=== PATIENT | female | born 1985 | race American Indian/Alaskan Native ===

== ENCOUNTER 2019-01-21 11:33 | Emergency (ER) | payer OTHER, MEDICAID ==
[2019-01-21 11:43] VITALS: BP 161/99
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
== END 2019-01-21 12:36 | disposition home or self-care (01) ==
LOC: ED 11:33
DX: S39.012A Strain of muscle, fascia and tendon of lower back, initial encounter (principal); I10 Essential (primary) hypertension; V87.7XXA Person injured in collision between other specified motor vehicles (traffic), initial encounter; Y93.89 Activity, other specified; Y92.488 Other paved roadways as the place of occurrence of the external cause; Y99.8 Other external cause status
CPT/HCPCS: 99282

== ENCOUNTER 2019-04-21 03:12 | Inpatient (IN) | payer BC, MEDICAID ==
[2019-04-21] MEDS ORDERED: MAGNESIUM SULFATE 2GM/50ML 2 GM/50 ML BAG IV ONE (03:43)
[2019-04-21] MEDS ORDERED: XYLOCAINE TOPICAL 4% TP ONE (03:43)
[2019-04-21] MEDS ORDERED: BENADRYL IV ONE (03:43)
[2019-04-21] MEDS ORDERED: REGLAN IV ONE (03:43)
[2019-04-21] MEDS ORDERED: APRESOLINE IV ONE (03:43)
[2019-04-21] MEDS ORDERED: SOLU-Medrol IV ONE (03:43)
--- NOTE | 2019-04-21 03:45 | Event Note ---
Date: 04/21/19 Medical screening examination 34-year-old female, reports having had outpatient ultrasound at [facility] last week, found to be 4 weeks last week, now presenting with temporal, frontal, and occipital headache, associated neck discomfort. Also endorses binocular blurry vision. No recent trauma. Walking with a steady gait. GCS of 15. No other physical pain. Has a previous history of hypertension associated with , but has not taken labetalol for the past one or 2 years. Patient's symptoms will be treated. Screening laboratory studies have been ordered. Noncontrast CT scan of the brain ordered. Patient has provided informed consent for noncontrast CT scan of the brain. Vital Signs 04/21/19 03:16 Temperature 98.5 F Pulse Rate 88 Respiratory 18 Rate Blood Pressure 186/127 O2 Sat by Pulse 100 Oximetry
[2019-04-21 04:13] LABS: Bilirubin,Urine NEG (Negative); Blood,Urine MOD (Negative); Color,Urine Yellow (Yellow); Mucus,Urine FEW /HPF; Protein,Urine <15 mg/dL mg/dL (Negative); Urobilinogen,Urine < 2.0 mg/dL (<2.0)
[2019-04-21 04:25] LABS: Basophils # (Auto) 0.1 K/mm3 (0.0-0.1); Basophils % (Auto) 0.6 % (0.0-1.8); Eosinophils # (Auto) 0.1 K/mm3 (0.0-0.4); Hematocrit 36.5 % (30.3-42.9); Hemoglobin 12.5 gm/dl (10.1-14.3); Lymphocytes # (Auto) 2.5 K/mm3 (1.2-5.4); Mean Corpuscular HGB Conc 34 % (30-34); Mean Corpuscular Volume 87 fl (79-97); Monocytes # (Auto) 0.6 K/mm3 (0.0-0.8); Monocytes % (Auto) 4.1 % (0.0-7.3); Platelet Count 350 K/mm3 (140-440); Red Blood Count 4.19 M/mm3 (3.65-5.03); Red Cell Distribution Width 15.1 % (13.2-15.2)
[2019-04-21 04:34] LABS: INR 0.95 (0.87-1.13)
[2019-04-21 05:20] LABS: Alanine Aminotransferase 11 units/L (7-56); Albumin 3.7 g/dL (3.9-5); BUN/Creatinine Ratio 13; Blood Urea Nitrogen 10 mg/dL (7-17); Calcium 9.1 mg/dL (8.4-10.2); Hemolysis Index 10
[2019-04-21] MEDS ORDERED: NORMODYNE IV ONE (06:11)
[2019-04-21] MEDS ORDERED: MORPHINE IV ONE (06:37)
[2019-04-21] MEDS ORDERED: ZOFRAN IV ONE (06:37)
--- NOTE | 2019-04-21 07:23 | Cat Scan Report ---
PROCEDURE: CT HEAD/BRAIN WO CON TECHNIQUE: Computerized tomography of the head was performed without contrast material. HISTORY: MELARA HTN COMPARISONS: None . FINDINGS: The ventricles, cisterns and sulci are within normal limits. No intra parenchymal or extra-axial mas s, hemorrhage, or mass effect. Landa and white-matter differentiation is within normal limits. Normal spherical shape of the globes. Paranasal sinuses and mastoid air cells are clear. No skull o r facial fracture visualized. IMPRESSION: No acute intracranial abnormality. This document is electronically signed by Ricky Massey MD., April 21 2019 07:21:55 AM ET
--- NOTE | 2019-04-21 08:19 | Event Note ---
Date: 04/21/19 (admit for hypertension mgt) Received pt information from in ED. 34yo 5weeks gestation with elevated BP. Consulted with . Will admit to M/B and have Hospitalist consult for hypertension management. Orders in EMR. Charge Nurse M/B notified of pt's pending admission.
--- NOTE | 2019-04-21 08:39 | Emergency Department Report ---
ED General Adult HPI - General Chief complaint: Headache Stated complaint: HEADACHE/BLURRY VISION Time Seen by Provider: 04/21/19 06:10 Source: patient Mode of arrival: Ambulatory Limitations: No Limitations - History of Present Illness Initial comments: 34-year-old female presents to the emergency department with a history of 5 weeks and headache. Headache is described as diffuse. She complains of some neck discomfort but no stiffness. She does not report phonophobia. She apparently had some sonophobia or feeling like there was a "tunnel in her ears". He does not report any sinus drainage. She has not been vomiting. She denies fever or chills. His likely the patient is noncompliant with medication for hypertension. She has a history of hypertension in with her last . She states it was twins delivered vaginally. This was about [address] Cameron Dominguez. She has not had any OB care for the current . -: Gradual, days(s) Location: head Radiation: non-radiation Severity scale (0 -10): 0 Quality: aching Consistency: intermittent Improves with: none Worsens with: none Associated Symptoms: denies other symptoms, headaches, other (states neck pain but no stiffness). denies: confusion, chest pain, cough, diaphoresis, fever/chills, loss of appetite, malaise, nausea/vomiting, rash, seizure, shortness of breath, syncope, weakness Treatments Prior to Arrival: none - Related Data Home Medications Medication Instructions Recorded Confirmed Last Taken Vits96/Iron Fum/Folic 1 tab PO DAILY 01/14/14 01/29/14 01/27/14 [ Tablet] 1 tablet Previous Rx's Medication Instructions Recorded Last Taken Type Ferrous Sulfate [Feosol 325 MG tab] 325 mg PO BID #60 tablet 01/30/14 Unknown Rx Ibuprofen [Motrin 600 MG tab] 600 mg PO Q6HR PRN #30 tablet 01/30/14 Unknown Rx Labetalol [Labetalol 100mg TAB] 100 mg PO BID #60 tablet 01/30/14 Unknown Rx Vit-Fe Fumar-FA [ 1 each PO QDAY #30 tablet 01/30/14 Unknown Rx Vitamin] Ibuprofen [Motrin] 600 mg PO Q8H PRN #20 tablet 01/21/19 Unknown Rx methOCARBAMOL [Robaxin TAB] 500 mg PO Q6H PRN #15 tablet 01/21/19 Unknown Rx traMADol [Ultram] 50 mg PO Q6HR PRN #6 tablet 01/21/19 Unknown Rx Allergies Allergy/AdvReac Type Severity Reaction Status Date / Time No Known Allergies Allergy Verified 01/21/19 11:37 ED Review of Systems ROS: Stated complaint: HEADACHE/BLURRY VISION Other details as noted in HPI Constitutional: denies: chills, fever Eyes: denies: eye pain, eye discharge, vision change ENT: denies: ear pain, throat pain Respiratory: denies: cough, shortness of breath, wheezing Cardiovascular: denies: chest pain, palpitations Endocrine: no symptoms reported Gastrointestinal: denies: abdominal pain, nausea, diarrhea Genitourinary: denies: urgency, dysuria, discharge Musculoskeletal: denies: back pain, joint swelling, arthralgia Skin: denies: rash, lesions Neurological: headache. denies: weakness, paresthesias Psychiatric: denies: anxiety, depression Hematological/Lymphatic: denies: easy bleeding, easy bruising ED Past Medical Hx - Past Medical History Previous Medical History?: Yes Hx Hypertension: Yes Hx Congestive Heart Failure: No Hx Diabetes: No Hx Deep Vein Thrombosis: No Hx Renal Disease: No Hx Sickle Cell Disease: No Hx Seizures: No Hx Asthma: No Hx COPD: No Hx HIV: No Additional medical history: Morbid Obesity - Surgical History Past Surgical History?: No - Social History Smoking Status: Never Smoker Substance Use Type: None - Medications Home Medications: Home Medications Medication Instructions Recorded Confirmed Last Taken Type Vits96/Iron Fum/Folic 1 tab PO DAILY 01/14/14 01/29/14 01/27/14 History [ Tablet] 1 tablet Ferrous Sulfate [Feosol 325 MG tab] 325 mg PO BID #60 tablet 01/30/14 Unknown Rx Ibuprofen [Motrin 600 MG tab] 600 mg PO Q6HR PRN #30 tablet 01/30/14 Unknown Rx Labetalol [Labetalol 100mg TAB] 100 mg PO BID #60 tablet 01/30/14 Unknown Rx Vit-Fe Fumar-FA [ 1 each PO QDAY #30 tablet 01/30/14 Unknown Rx Vitamin] Ibuprofen [Motrin] 600 mg PO Q8H PRN #20 tablet 01/21/19 Unknown Rx methOCARBAMOL [Robaxin TAB] 500 mg PO Q6H PRN #15 tablet 01/21/19 Unknown Rx traMADol [Ultram] 50 mg PO Q6HR PRN #6 tablet 01/21/19 Unknown Rx ED Physical Exam - General Limitations: No Limitations General appearance: alert, in no apparent distress - Head Head exam: Present: atraumatic, normocephalic - Eye Eye exam: Present: normal appearance, PERRL, EOMI. Absent: scleral icterus - ENT ENT exam: Present: mucous membranes moist - Neck Neck exam: Present: normal inspection. Absent: tenderness, meningismus - Respiratory Respiratory exam: Present: normal lung sounds bilaterally. Absent: respiratory distress - Cardiovascular Cardiovascular Exam: Present: regular rate, normal rhythm. Absent: systolic murmur, diastolic murmur, rubs, gallop - GI/Abdominal GI/Abdominal exam: Present: soft, normal bowel sounds. Absent: distended, tenderness, guarding, rebound - Extremities Exam Extremities exam: Present: normal inspection - Back Exam Back exam: Present: normal inspection - Neurological Exam Neurological exam: Present: alert, oriented X3, CN II-XII intact. Absent: motor sensory deficit - Psychiatric Psychiatric exam: Present: normal affect, normal mood - Skin Skin exam: Present: warm, dry, intact, normal color. Absent: rash ED Course Vital Signs 04/21/19 04/21/19 04/21/19 03:16 03:36 04:00 Temperature 98.5 F Pulse Rate 88 83 82 Respiratory 18 18 14 Rate Blood Pressure 186/127 176/108 O2 Sat by Pulse 100 98 99 Oximetry 04/21/19 04/21/19 04/21/19 04:30 05:13 05:31 Temperature Pulse Rate 82 82 102 H Respiratory 17 16 22 Rate Blood Pressure 176/108 176/108 154/113 O2 Sat by Pulse 100 100 90 Oximetry 04/21/19 04/21/19 04/21/19 06:00 06:30 07:03 Temperature Pulse Rate 82 83 89 Respiratory 18 19 15 Rate Blood Pressure 142/98 161/99 158/102 O2 Sat by Pulse 98 100 100 Oximetry 04/21/19 04/21/19 07:31 08:00 Temperature Pulse Rate 70 71 Respiratory 15 16 Rate Blood Pressure 161/99 155/93 O2 Sat by Pulse 97 99 Oximetry - Reevaluation(s) Reevaluation #1: Blood pressure reduction in the emergency Department. Magnesium given prior to my arrival. I do not know why the patient was given Solu-Medrol down prior to my arrival. Discussed with OB and admitted to Dr. Loomis's service. 04/21/19 08:45 04/21/19 08:45 Possible UTI noted and urine culture ordered. ED Medical Decision Making - Lab Data Result diagrams: 04/21/19 04:00 04/21/19 04:06 Laboratory Results - last 24 hr 04/21/19 04/21/19 04/21/19 03:30 04:00 04:00 WBC 14.2 H RBC 4.19 Hgb 12.5 Hct 36.5 MCV 87 MCH 30 MCHC 34 RDW 15.1 Plt Count 350 Lymph % (Auto) 18.0 Steele % (Auto) 4.1 Eos % (Auto) 1.0 Baso % (Auto) 0.6 Lymph # 2.5 Steele # 0.6 Eos # 0.1 Baso # 0.1 Seg Neutrophils % 76.3 H Seg Neutrophils # 10.8 H PT INR Sodium Potassium Chloride Carbon Dioxide Anion Gap BUN Creatinine Estimated GFR BUN/Creatinine Ratio Glucose Calcium Magnesium Total Bilirubin AST ALT Alkaline Phosphatase Total Creatine Kinase Total Protein Albumin Albumin/Globulin Ratio HCG, Quant 32227 H Urine Color Yellow Urine Turbidity Slightly-cloudy Urine pH 5.0 Ur Specific [place] 1.015 Urine Protein <15 mg/dl Urine Glucose (UA) Neg Urine Ketones Neg Urine Blood Mod Urine Nitrite Neg Urine Bilirubin Neg Urine Urobilinogen < 2.0 Ur Leukocyte Esterase Mod Urine WBC (Auto) 24.0 H Urine RBC (Auto) 5.0 U Epithel Cells (Auto) 16.0 H Urine Mucus Few 04/21/19 04/21/19 04:06 04:06 WBC RBC Hgb Hct MCV MCH MCHC RDW Plt Count Lymph % (Auto) Steele % (Auto) Eos % (Auto) Baso % (Auto) Lymph # Steele # Eos # Baso # Seg Neutrophils % Seg Neutrophils # PT 13.2 INR 0.95 Sodium 136 L Potassium 4.0 Chloride 100.0 Carbon Dioxide 23 Anion Gap 17 BUN 10 Creatinine 0.8 Estimated GFR > 60 BUN/Creatinine Ratio 13 Glucose 101 H Calcium 9.1 Magnesium 1.80 Total Bilirubin 0.60 AST 10 ALT 11 Alkaline Phosphatase 66 Total Creatine Kinase 61 Total Protein 7.3 Albumin 3.7 L Albumin/Globulin Ratio 1.0 HCG, Quant Urine Color Urine Turbidity Urine pH Ur Specific [place] Urine Protein Urine Glucose (UA) Urine Ketones Urine Blood Urine Nitrite Urine Bilirubin Urine Urobilinogen Ur Leukocyte Esterase Urine WBC (Auto) Urine RBC (Auto) U Epithel Cells (Auto) Urine Mucus - EKG Data -: EKG Interpreted by Me EKG shows normal: sinus rhythm, axis, intervals, QRS complexes (tiny R in V2 nonspecific), ST-T waves Rate: normal - EKG Data Interpretation: nonspecific ST-T wave candis (inverted T-wave in standard lead 3) - Radiology Data Radiology results: report reviewed (CT that showed no acute process) Critical care attestation.: If time is entered above; I have spent that time in minutes in the direct care of this critically ill patient, excluding procedure time. ED Disposition Clinical Impression: Accelerated hypertension, with 5 completed weeks gestation Cephalalgia Qualifiers: Headache type: unspecified Headache chronicity pattern: acute headache Intractability: not intractable Qualified Code(s): R51 - Headache Disposition: OP ADMIT IP TO THIS HOSP Is pt being admited?: Yes Does the pt Need Aspirin: Yes Condition: Stable Instructions: Hypertension (ED) Referrals: TERESITA HALL MD [Primary Care Provider] - 3-5 Days Time of Disposition: 08:47
--- NOTE | 2019-04-21 09:15 | Ultrasound Report ---
ULTRASOUND OB LESS THAN 14 WEEKS FETUS History: Established IUP Findings: Transabdominal imaging was performed. The uterus measures 12.6 x 6 cm. No obvious uterine fibroids. An intrauterine gestational sac containing a small pole and yolk sac is identified. heart rate measures 133 beats per minute. Frisbee-rump length measures 5.5 mm which correlates with a six-week two-day . No subchorionic hemorrhage is identified. Bilateral ovarian cysts are identified. There are 3 cysts in the right ovary measuring 2.8 cm, 2.8 cm and 3.8 cm. A solitary left ovarian cyst measures 2.7 cm. No pelvic fluid collection. IMPRESSION: Viable, single intrauterine as described. Bilateral ovarian cysts.
[2019-04-21] MEDS ORDERED: NORMODYNE PO SCH (10:00)
[2019-04-21] MEDS: LACTATED RINGERS 1,000 ML IV SCH ×2 (10:30→21:27)
[2019-04-21] MEDS: APRESOLINE IV PRN ×2 (16:49→17:43)
[2019-04-21] MEDS: TYLENOL PO PRN ×2 (16:50→22:06)
[2019-04-21] MEDS ORDERED: FLEXERIL PO ONE (18:49)
--- NOTE | 2019-04-21 19:19 | History and Physical Report ---
History of Present Illness Date of examination: 04/21/19 Date of admission: 04/21/19 07:56 History of present illness: This is a 34-year-old black female para 3 his last menstrual period was 03/07/2019. Present to the emergency room complaints of increasing headaches past week severe. Patient estimated gestational age of 6 weeks. Workup in the ER included a CT scan of her head was normal. Patient does have a history of chronic hypertension but has been noncompliant with medication. Past History Past Medical History: hypertension Past Surgical History: tonsillectomy, D&C [employer] History: chlamydia, herpes Family/Genetic History: hypertension Social history: full code - Obstetrical History Expected Date of Delivery: 12/13/19 Actual Gestation: 6 Week(s) 6 Day(s) : 5 Para: 2 (1 set of twins) Hx # Term Pregnancies: 2 Number of Pregnancies: 0 Spontaneous Abortions: 0 Induced : 3 Number of Living Children: 3 Medications and Allergies Allergies Allergy/AdvReac Type Severity Reaction Status Date / Time No Known Allergies Allergy Verified 01/21/19 11:37 Home Medications Medication Instructions Recorded Confirmed Last Taken Type Vits96/Iron Fum/Folic 1 tab PO DAILY 01/14/14 04/21/19 01/27/14 History [ Tablet] 1 tablet Ferrous Sulfate [Feosol 325 MG tab] 325 mg PO BID #60 tablet 01/30/14 04/21/19 Unknown Rx Ibuprofen [Motrin 600 MG tab] 600 mg PO Q6HR PRN #30 tablet 01/30/14 04/21/19 Unknown Rx Labetalol [Labetalol 100mg TAB] 100 mg PO BID #60 tablet 01/30/14 04/21/19 04/21/19 Rx Vit-Fe Fumar-FA [ 1 each PO QDAY #30 tablet 01/30/14 04/21/19 Unknown Rx Vitamin] Ibuprofen [Motrin] 600 mg PO Q8H PRN #20 tablet 01/21/19 04/21/19 Unknown Rx methOCARBAMOL [Robaxin TAB] 500 mg PO Q6H PRN #15 tablet 01/21/19 04/21/19 Unknown Rx traMADol [Ultram] 50 mg PO Q6HR PRN #6 tablet 01/21/19 04/21/19 Unknown Rx Acetaminophen/Codeine [Tylenol 1 tab PO Q4HR PRN #20 tablet 04/23/19 Unknown Rx /Codeine # 3 tab] Labetalol [Labetalol 200mg TAB] 300 mg PO BID #60 tablet 04/23/19 Unknown Rx Active Meds: Active Medications Acetaminophen (Tylenol) 650 mg PO Q4H PRN PRN Reason: Pain, Mild (1-3) Last Admin: 04/21/19 16:50 Dose: 650 mg Documented by: Lactated Ringer's (Lactated Ringers) 1,000 mls @ 125 mls/hr IV DIRECT JULIA Last Admin: 04/21/19 10:30 Dose: 125 mls/hr Documented by: Labetalol HCl (Normodyne) 300 mg PO BID JULIA - Vital Signs Vital signs: Vital Signs Temp Pulse Resp BP Pulse Ox 98.5 F 88 18 186/127 100 04/21/19 03:16 04/21/19 03:16 04/21/19 03:16 04/21/19 03:16 04/21/19 03:16 Temp Pulse Resp BP Pulse Ox 98.4 F 96 H 16 153/88 98 04/21/19 16:11 04/21/19 18:13 04/21/19 16:50 04/21/19 18:13 04/21/19 09:39 - Physical Exam Cardiovascular: Regular rate Lungs: Positive: Normal air movement Abdomen: Positive: normal appearance, other (Obese) Extremities: Positive: normal Results Result Diagrams: 04/21/19 04:00 04/21/19 04:06 Abnormal lab results 04/21/19 04/21/19 04/21/19 Range/Units 03:30 04:00 04:00 WBC 14.2 H (4.5-11.0) K/mm3 Seg Neutrophils % 76.3 H (40.0-70.0) % Seg Neutrophils # 10.8 H (1.8-7.7) K/mm3 Sodium (137-145) mmol/L Glucose (65-100) mg/dL Albumin (3.9-5) g/dL HCG, Quant 55139 H (0-4) mIU/mL Urine WBC (Auto) 24.0 H (0.0-6.0) /HPF U Epithel Cells (Auto) 16.0 H (0-13.0) /HPF 04/21/19 Range/Units 04:06 WBC (4.5-11.0) K/mm3 Seg Neutrophils % (40.0-70.0) % Seg Neutrophils # (1.8-7.7) K/mm3 Sodium 136 L (137-145) mmol/L Glucose 101 H (65-100) mg/dL Albumin 3.7 L (3.9-5) g/dL HCG, Quant (0-4) mIU/mL Urine WBC (Auto) (0.0-6.0) /HPF U Epithel Cells (Auto) (0-13.0) /HPF All other labs normal. Assessment and Plan - Patient Problems (1) Hypertension Status: Acute Qualifiers: Hypertension type: essential hypertension Qualified Code(s): I10 - Essential (primary) hypertension Plan to address problem: Patient with chronic hypertension has been without medication. Patient is less than 10 weeks do not feel that is affecting her blood pressure. We'll start her on antihypertensive to monitor blood pressure (2) Neck pain Status: Acute Plan to address problem: Patient states that she has pain in the back of her neck radiate frontal headache Possible muscle strain. We'll give Flexeril. (3) Headache Status: Acute Qualifiers: Headache chronicity pattern: acute headache Intractability: intractable Plan to address problem: Possible etiologies tension headache versus a headache from elevated blood pressures. Patient with a negative CT scan. If treatment with ant ihypertensives with normal blood pressures and muscle relaxant doesn't improve her headache will consider neurology consult. (4) Multigravida in first trimester Status: Acute
[2019-04-21] MEDS ORDERED: ZOFRAN IV PRN (20:06)
[2019-04-21] MEDS: NORMODYNE PO SCH (22:07)
[2019-04-21] MEDS ORDERED: MORPHINE IM NR (22:57)
[2019-04-22] MEDS: TYLENOL #3 PO PRN ×4 (03:32→22:29)
--- NOTE | 2019-04-22 08:47 | Progress Note ---
Assessment and Plan - Patient Problems (1) 6 weeks gestation of Current Visit: Yes Status: Acute (2) Accelerated hypertension Current Visit: Yes Status: Chronic Plan to address problem: Improving with Labetalol 300mg bid (3) Cephalalgia Current Visit: Yes Status: Acute Qualifiers: Headache type: unspecified Headache chronicity pattern: acute headache Intractability: not intractable Qualified Code(s): R51 - Headache Plan to address problem: States better since BP are better. Now mostly neck pain, she's received MSO4 4mg IM last pm@10p. MELARA unresponsive to Flexeril. She had Tylenol #3 ordered, she received the last dose this am at 0330 Neurology consult pending (4) Neck pain Current Visit: Yes Status: Acute Subjective - Subjective Date of service: 04/22/19 Principal diagnosis: IUP@6weeks, CHTN uncontrolled, neck pain and MLEARA Interval history: MELARA improved however still with neck pain Patient reports: appetite normal, voiding normally Objective - Vital Signs Latest vital signs: Vital Signs Temp Pulse Pulse Resp Resp BP BP 04/22/19 08:27 98.4 F 73 22 149/99 04/22/19 04:25 98.8 F 74 20 133/83 04/22/19 01:13 98.7 F 89 18 150/91 04/21/19 22:07 98 H 161/91 04/21/19 20:00 95 H 18 04/21/19 19:48 98.4 F 102 H 18 155/97 04/21/19 18:13 96 H 153/88 04/21/19 17:43 90 152/103 04/21/19 16:51 99 H 154/104 04/21/19 16:50 16 04/21/19 16:49 100 H 168/92 04/21/19 16:11 98.4 F 101 H 18 168/92 04/21/19 12:15 98.2 F 98 H 18 147/94 04/21/19 10:29 96 H 177/100 04/21/19 10:00 14 04/21/19 09:57 14 04/21/19 09:39 98.6 F 96 H 16 177/100 Pulse Ox 04/22/19 08:27 98 04/22/19 04:25 96 04/22/19 01:13 97 04/21/19 22:07 04/21/19 20:00 04/21/19 19:48 98 04/21/19 18:13 04/21/19 17:43 04/21/19 16:51 04/21/19 16:50 04/21/19 16:49 04/21/19 16:11 04/21/19 12:15 04/21/19 10:29 04/21/19 10:00 04/21/19 09:57 04/21/19 09:39 98 Intake and Output 04/21/19 04/22/19 04/22/19 22:59 06:59 14:59 Intake Total 1480 120 Output Total 650 Balance 1480 -530 Intake: IV 1000 Lactated Ringers 1,000 ml 1000 @ 125 mls/hr IV DIRECT [facility] Rx#:[id number] Oral 480 Intake, Free Water 120 Output: Urine 650 Void 650 Other: Total, Intake Amount 480 Total, Output Amount 400 Voiding Method Toilet Toilet
[2019-04-22] MEDS: NORMODYNE PO SCH ×2 (10:00→21:33)
--- NOTE | 2019-04-22 11:13 | Consultation ---
Past History Social history: full code Medications and Allergies Allergies Allergy/AdvReac Type Severity Reaction Status Date / Time No Known Allergies Allergy Verified 01/21/19 11:37 Home Medications Medication Instructions Recorded Confirmed Last Taken Type Vits96/Iron Fum/Folic 1 tab PO DAILY 01/14/14 04/21/19 01/27/14 History [ Tablet] 1 tablet Ferrous Sulfate [Feosol 325 MG tab] 325 mg PO BID #60 tablet 01/30/14 04/21/19 Unknown Rx Ibuprofen [Motrin 600 MG tab] 600 mg PO Q6HR PRN #30 tablet 01/30/14 04/21/19 Unknown Rx Labetalol [Labetalol 100mg TAB] 100 mg PO BID #60 tablet 01/30/14 04/21/19 04/21/19 Rx Vit-Fe Fumar-FA [ 1 each PO QDAY #30 tablet 01/30/14 04/21/19 Unknown Rx Vitamin] Ibuprofen [Motrin] 600 mg PO Q8H PRN #20 tablet 01/21/19 04/21/19 Unknown Rx methOCARBAMOL [Robaxin TAB] 500 mg PO Q6H PRN #15 tablet 01/21/19 04/21/19 Unknown Rx traMADol [Ultram] 50 mg PO Q6HR PRN #6 tablet 01/21/19 04/21/19 Unknown Rx Active Meds: Active Medications Acetaminophen (Tylenol) 650 mg PO Q4H PRN PRN Reason: Pain, Mild (1-3) Last Admin: 04/21/19 22:06 Dose: 650 mg Documented by: Acetaminophen/Codeine Phosphate (Tylenol #3) 1 tab PO Q4H PRN PRN Reason: Pain, Moderate (4-6) Last Admin: 04/22/19 03:32 Dose: 1 tab Documented by: Lactated Ringer's (Lactated Ringers) 1,000 mls @ 125 mls/hr IV DIRECT JULIA Last Admin: 04/21/19 21:27 Dose: 125 mls/hr Documented by: Labetalol HCl (Normodyne) 300 mg PO BID JULIA Last Admin: 04/21/19 22:07 Dose: 300 mg Documented by: Ondansetron HCl (Zofran) 8 mg IV Q8H PRN PRN Reason: Nausea Last Admin: 04/21/19 21:32 Dose: 8 mg Documented by: Physical Examination - Vital Signs Vital Signs: Vital Signs Temp Pulse Resp BP Pulse Ox 98.5 F 88 18 186/127 100 04/21/19 03:16 04/21/19 03:16 04/21/19 03:16 04/21/19 03:16 04/21/19 03:16 Results - Laboratory Findings CBC and BMP: 04/21/19 04:00 04/21/19 04:06 Abnormal Lab Findings: Abnormal Labs 04/21/19 04/21/19 04/21/19 03:30 04:00 04:00 WBC 14.2 H Seg Neutrophils % 76.3 H Seg Neutrophils # 10.8 H Sodium Glucose Albumin HCG, Quant 33730 H Urine WBC (Auto) 24.0 H U Epithel Cells (Auto) 16.0 H 04/21/19 04:06 WBC Seg Neutrophils % Seg Neutrophils # Sodium 136 L Glucose 101 H Albumin 3.7 L HCG, Quant Urine WBC (Auto) U Epithel Cells (Auto) Assessment and Plan 34-year-old female with a history of hypertension, and 5 pregnancies, currently 5 months who was admitted on account of severe headache going on for 2 weeks. Patient states that whenever she wakes up in the morning she feels a sensation of tightness in the leg and headache in the back of the head. She denies any throbbing sensation on the temples, any nausea vomiting or any photophobia or sonophobia. Patient has experience with migraine headaches in the past and she clearly states that these are not like the migraine headaches.& Blood pressure was found to be high on admission which was 160/91. And patient to report that she needs to her medication for a few days and also she is not compliant with her blood pressure medication and eats a lot of cheese and salty food. Since admission, patient was given Tylenol No. 3 and also Robaxin which is a muscle relaxant. And patient reports some improvement of her headaches. After admission CT scan was done which does not show any evidence of intracranial space occupying lesion or any evidence of slit like ventricles which could suggest pseudo-tumor cerebri. Patient's current blood pressure is within normal range. Physical examination. Gen. In no acute distress. Patient is alert and appropriate and has insight into her problems and answers questions appropriately Heart. Normal rate and rhythm. Carotids. Both palpable. Cranial nerves. All cranial nerves are within normal limits. There is no facial asymmetry, pupils reacted to light and accommodation. Extraocular movement is intact. Normal sensation to touch on both sides of the face. Swallow Is Normal. Other Cranial Labs Are within Normal Limit. Motor. Normal Strength in All 4 Extremities without Any Asymmetry. Reflexes. Normal Reflexes in All 4 Extremities with Bilateral Downgoing Toes Coordination. [id number] within Normal Limit. Sensory Examination. Sensation in All 4 Extremities Including Her Face Was w ithin Normal Limit. Gait. Gait Was Not Tested Considering Discomfort to the Patient. Impression #1 Patient Seems to Have Headaches induced by uncontrolled Hypertension, although she has an element of chronic tension-type headache superimposed. I do not see any evidence of migraine or any other types of headache due to any intracranial lesion. Recommend #1 discontinue Robaxin for methocarbamol which is a class III drug in . Continues cyclobenzaprine 5 mg by mouth twice a day as a muscle relaxant for 1 or 2 days only. Cyclobenzaprine is a class II drug in . #2 patient was counseled by me about taking blood pressure medication regularly and to avoid salt and cheese as much as possible. She voiced understanding
[2019-04-22] MEDS ORDERED: MILK OF MAGNESIA PO PRN (19:43)
[2019-04-23] MEDS: TYLENOL #3 PO PRN ×3 (02:59→12:45)
--- NOTE | 2019-04-23 07:52 | Discharge Summary ---
Providers - Providers Date of Admission: 04/21/19 07:56 Date of discharge: 04/23/19 (pt desires ) Attending physician: SHIVAM GELLER 04/21/19 08:00 Consult to Physician [CONS] Routine Comment: Consulting Provider: KATIUSKA HUITRON Physician Instructions: please see pt for hypertension mgt Reason For Exam: management hypertension 04/22/19 09:04 Consult to Physician [CONS] Routine Comment: Consulting Provider: LILI MYERS Physician Instructions: Reason For Exam: intractable headache Primary care physician: [facility], [place] Hospitalization Reason for admission: blood pressure management in 1st trimester Condition: Stable Hospital course: pt presented to ED with severe head and neck pain. uncontrolled hypertension in first trimester gestation. admitted to for BP control. Labetalol 300 bid. neuro consult dx koroma from uncontrolled hypertension. pt desires d/c consulted with dr. beulah cadet d/c today with instructions pt has appt in dr. dominguez's office Thursday as per pt. rx provided at d/c for labetalol and Tylenol#3 Disposition: DC-01 TO HOME OR SELFCARE - Discharge Diagnoses (1) 6 weeks gestation of Status: Acute Comment: pt has appt with Dr.T Dominguez on Thursday (2) Hypertension Status: Acute Qualifiers: Hypertension type: essential hypertension Qualified Code(s): I10 - Essential (primary) hypertension Comment: take medication as prescribed Core Measure Documentation - Palliative Care Palliative Care/ Comfort Measures: Not Applicable - Core Measures Any of the following diagnoses?: none - VTE Discharge Requirements Deep Vein Thrombosis/Pulmonary Embolism Present on Admission: No Has pt received <5 days of overlap therapy or INR<2.0: No Anticoagulant overlap therapy prescribed at discharge: No Contraindication No Overlap Therapy order at DC: Not Indicated - Acute [place] Discharge Requirements Aspirin at discharge: No Reason for no aspirin on DC: Medical contraindication DENISE/ARB for LVSD if EF <40%: Not Applicable Reason for no DENISE/ARB: Medical contraindication Beta jonna at discharge: No Reason for no beta jonna on DC: Medical contraindication Statin for LDL = or >100 mg/dl on DC: Not Applicable Reason for no statin on DC: Medical contraindication - Heart Failure Discharge Requirements DENISE/ARB for LVSD if EF <40%: Not Applicable Reason for no DENISE/ARB: Medical contraindication Beta jonna at discharge: No Reason for no beta jonna on DC: Medical contraindication - Stroke Discharge Requirements Statin for LDL = or >70 mg/dl on DC: Not Applicable Reason for no statin on DC: Not Indicated Anticoag for atrial fib/atrial flutter: Not Applicable Reason for no anticoag for AF/F on DC: Not Indicated Antithrombotic for ischemic stroke: No Reason for no antithrombotic on DC: Not Indicated Exam - Constitutional Vitals: Temp Pulse Resp BP Pulse Ox 98.2 F 83 20 145/95 99 04/23/19 05:00 04/23/19 05:00 04/23/19 05:00 04/23/19 05:00 04/23/19 05:00 General appearance: Present: no acute distress, well-nourished - EENT Eyes: Present: PERRL ENT: hearing intact, clear oral mucosa - Neck Neck: Present: supple, normal ROM - Respiratory Respiratory effort: normal Respiratory: bilateral: CTA - Cardiovascular Heart Sounds: Present: S1 & S2. Absent: rub, click - Extremities Extremities: pulses symmetrical, No edema Extremity abnormal: edema Peripheral Pulses: within normal limits - Abdominal General gastrointestinal: Present: deferred Female genitourinary: Present: deferred - Rectal Rectal Exam: deferred - Integumentary Integumentary: Present: clear, warm, dry - Musculoskeletal Musculoskeletal: gait normal, strength equal bilaterally - Psychiatric Psychiatric: appropriate mood/affect, intact judgment & insight - Neurologic Neurologic: CNII-XII intact, moves all extremities Plan Activity: advance as tolerated Weight Bearing Status: Weight Bear as Tolerated Diet: low salt Follow up with: TERESITA HALL MD [Primary Care Provider] - 3-5 Days PHIL BURKETT CNM [Advanced Practice Nurse] - 04/25/19 (Keep appointment as scheduled with on Thursday. Take medications as prescribed. ) Prescriptions: Labetalol [Labetalol 200mg TAB] 300 mg PO BID #60 tablet Acetaminophen/Codeine [Tylenol /Codeine # 3 tab] 1 tab PO Q4HR PRN #20 tablet PRN Reason: Pain
[2019-04-23] MEDS: NORMODYNE PO SCH (10:15)
[2019-04-23 12:10] VITALS: BP 137/87
== END 2019-04-23 12:15 | disposition home or self-care (01) | DRG 832 ==
LOC: ED 03:12 → OB 07:56
PROVIDERS: ADMIT Obstetrics & Gynecology; ATTEND Obstetrics & Gynecology
DX: O10.911 Unspecified pre-existing hypertension complicating pregnancy, first trimester (principal); Z68.43 Body mass index [BMI] 50.0-59.9, adult; O99.351 Diseases of the nervous system complicating pregnancy, first trimester; O99.211 Obesity complicating pregnancy, first trimester; R51 Headache; E66.01 Morbid (severe) obesity due to excess calories; Z3A.01 Less than 8 weeks gestation of pregnancy
CPT/HCPCS: 36415; 70450; 76801; 80053; 81001; 82550; 83735; 84702; 85025; 85610; 87086; 93005; 93010; 96365; 96375; G0378; J0360; J1200; J2270; J2405; J2765; J2930; J3475; J7120

== ENCOUNTER 2019-11-24 16:48 | Inpatient (IN) | payer BC, MEDICAID ==
[2019-11-24 19:42] LABS: Hematocrit 34.2 % (30.3-42.9); Hemoglobin 11.7 gm/dl (10.1-14.3); Mean Corpuscular HGB Conc 34 % (30-34); Mean Corpuscular Volume 89 fl (79-97); Platelet Count 409 K/mm3 (140-440); Red Blood Count 3.86 M/mm3 (3.65-5.03); Red Cell Distribution Width 14.5 % (13.2-15.2)
--- NOTE | 2019-11-24 19:56 | History and Physical Report ---
History of Present Illness Date of examination: 11/24/19 Chief complaint: Induction of labor due to Chronic hypertension History of present illness: Pt is a 34yo BF EDC 12/12/19; EGA 37 3/7 weeks presents to L&D from [facility] for induction of labor due to Chronic hypertension and BP's 139/94 on Procardia XL 30mg QD. She denies headaches, blurred vision or epigastric pains. She received care at [facility] since 7 weeks and co-managed by [facility] for Morbid Obesity and Chronic hypertension. records are available and GBS is unknown. Past History Past Medical History: hypertension Past Surgical History: no surgical history [employer]CHITECT History: chlamydia (treated 11/17/19), herpes Family/Genetic History: heart disease, hypertension Social history: no significant social history, - Obstetrical History Expected Date of Delivery: 12/12/19 Actual Gestation: 37 Week(s) 3 Day(s) : 5 Medications and Allergies Allergies Allergy/AdvReac Type Severity Reaction Status Date / Time No Known Allergies Allergy Verified 01/21/19 11:37 Home Medications Medication Instructions Recorded Confirmed Last Taken Type Ferrous Sulfate [Feosol 325 MG tab] 325 mg PO BID #60 tablet 01/30/14 11/24/19 11/24/19 09:00 Rx 325 mg Vit-Fe Fumar-FA [ 1 each PO QDAY #30 tablet 01/30/14 11/24/19 11/24/19 09:00 Rx Vitamin] Review of Systems All systems: negative - Vital Signs Vital signs: Vital Signs Pulse BP Pulse Ox 103 H 132/81 98 11/24/19 17:34 11/24/19 17:34 11/24/19 17:34 Temp Pulse Resp BP Pulse Ox 99 H 126/86 99 11/24/19 19:34 11/24/19 19:30 11/24/19 19:34 - Physical Exam Breasts: Positive: deferred Cardiovascular: Regular rate Lungs: Positive: Clear to auscultation Abdomen: Positive: normal appearance Genitourinary (Female): Positive: normal external genitalia Vagina: Positive: normal moisture Uterus: Positive: enlarged Extremities: Positive: normal - Obstetrical FHR: category 1 Uterine Contraction Monitor Mode: External Cervical Dilatation: 0.5 (per nurse) Cervical Effacement Percentage: 50 (per nurse) station: -3 Uterine Contraction Pattern: Absent Results Result Diagrams: 11/24/19 19:13 Abnormal lab results 11/24/19 Range/Units 19:13 WBC 14.2 H (4.5-11.0) K/mm3 All other labs normal. Ultrasound: report reviewed ([facility] 06/16; VIVIANA 11.4) Assessment and Plan - Patient Problems (1) 37 weeks gestation of Onset Date: 11/24/19 Current Visit: Yes Status: Acute Plan to address problem: A: IUP @ 37 3/7 weeks Chronic hypertension - on Procardia XL 30mg QD + Chlamydia - treated Unknown GBS h/o HSV Morbid obesity P: Admit to L&D for cervidil/pitocin induction of labor Continue Procardia XL 30mg IV Ampicillin when in labor Valtrex 500mg QD (2) Morbid obesity with BMI of 50.0-59.9, adult Onset Date: 11/24/19 Current Visit: Yes Status: Acute (3) Hypertension Onset Date: 11/24/19 Current Visit: No Status: Acute Qualifiers: Hypertension type: essential hypertension Qualified Code(s): I10 - Essential (primary) hypertension
[2019-11-24 20:04] LABS: Bacteria,Urine 2+ /HPF (Negative); Bilirubin,Urine NEG (Negative); Blood,Urine NEG (Negative); Color,Urine Yellow (Yellow); Mucus,Urine FEW /HPF; Protein,Urine <15 mg/dL mg/dL (Negative); Urobilinogen,Urine < 2.0 mg/dL (<2.0)
[2019-11-24 20:08] LABS: Alanine Aminotransferase 14 units/L (7-56); Uric Acid 5.3 mg/dL (3.5-7.6)
[2019-11-24] MEDS ORDERED: PROMETHAZINE 25 MG TAB PO PRN (20:14)
[2019-11-24] MEDS ORDERED: TERBUTALINE 1 MG/1 ML INJ SUB-Q PRN (20:14)
[2019-11-24] MEDS ORDERED: fentaNYL 100 MCG/2 ML INJ IV PRN (20:14)
[2019-11-24] MEDS ORDERED: TERBUTALINE 1 MG/1 ML INJ IVP PRN (20:14)
[2019-11-24] MEDS ORDERED: ePHEDrine SULFATE 50 MG/1 ML INJ IV PRN (20:14)
[2019-11-24] MEDS ORDERED: AMPICILLIN/NS 2 GM/100 ML 2 GM/100 ML BAG IV ONE (20:14)
[2019-11-24] MEDS ORDERED: MINERAL OIL 30 ML ORAL LIQD PO PRN (20:14)
[2019-11-24] MEDS ORDERED: ZOLPIDEM 5 MG TAB PO PRN (20:14)
[2019-11-24] MEDS ORDERED: LIDOCAINE (2%) 20 MG/1 ML VIAL 20 ML MDV INFILTRATI ONE (20:14)
[2019-11-24] MEDS ORDERED: DINOPROSTONE 10 MG VAG SUPP VG ONE (20:14)
[2019-11-24] MEDS ORDERED: BUTORPHANOL 2 MG/1 ML INJ IV PRN (20:14)
[2019-11-24] MEDS ORDERED: ONDANSETRON 4 MG/2 ML INJ IV PRN (20:14)
[2019-11-24] MEDS ORDERED: OXYTOCIN DRIP 30 UNITS/500 ML BAG IV SCH ×2 (21:00)
[2019-11-24] MEDS ORDERED: OXYTOCIN 20 UNIT/1000ML DRIP 20 UNITS/1,000 ML BAG IV SCH (21:00)
[2019-11-24] MEDS: valACYclovir 500 MG TAB PO SCH (21:01)
[2019-11-24] MEDS: LACTATED RINGERS 1,000 ML IV SCH (21:13)
[2019-11-25] MEDS ORDERED: AMPICILLIN/NS 1 GM/50 ML 1 GM/50 ML BAG IV SCH ×2 (00:16→19:00)
[2019-11-25] MEDS: LACTATED RINGERS 1,000 ML IV SCH ×2 (04:10→13:51)
[2019-11-25] MEDS: NIFEdipine XL 30 MG TAB PO SCH (10:43)
[2019-11-25] MEDS: valACYclovir 500 MG TAB PO SCH (10:43)
--- NOTE | 2019-11-25 11:15 | Progress Note ---
Assessment and Plan - Patient Problems (1) 37 weeks gestation of Onset Date: 11/24/19 Current Visit: Yes Status: Acute Plan to address problem: A: IUP @ 37 4/7 weeks Chronic hypertension - on Procardia XL 30mg QD + Chlamydia - treated Unknown GBS h/o HSV Morbid obesity P: Continue with pitocin induction of labor Continue Procardia XL 30mg IV Ampicillin when in labor Valtrex 500mg QD (2) Morbid obesity with BMI of 50.0-59.9, adult Onset Date: 11/24/19 Current Visit: Yes Status: Acute (3) Hypertension Onset Date: 11/24/19 Current Visit: No Status: Acute Qualifiers: Hypertension type: essential hypertension Qualified Code(s): I10 - Essential (primary) hypertension Subjective - Subjective Date of service: 11/25/19 Principal diagnosis: IUP @ 37 4/7 weeks; Chronic hypertension Interval history: Pt is a 34yo BF EDC 12/12/19; EGA 37 4/7 weeks presented to L&D from [facility] for induction of labor due to Chronic hypertension and BP's 139/94 on Procardia XL 30mg QD. She denies headaches, blurred vision or epigastric pains. She received care at [facility] since 7 weeks and co-managed by [facility] for Morbid Obesity and Chronic hypertension. records are available and GBS is unknown. She received cervidil last night which had to be removed early, and presently rosina q 3-6 mins. Patient reports: movement normal, contractions, no new complaints, no loss of fluid, no vaginal bleeding Objective - Vital Signs Vital Signs: Vital Signs - 12hr 11/24/19 11/24/19 11/24/19 23:20 23:35 23:51 Temperature Pulse Rate 79 78 98 H Respiratory Rate Blood Pressure 109/69 113/56 126/66 Blood Pressure [Right] O2 Sat by Pulse Oximetry 11/25/19 11/25/19 11/25/19 00:05 00:22 00:26 Temperature Pulse Rate 114 H 94 H 92 H Respiratory Rate Blood Pressure 165/105 132/71 138/79 Blood Pressure [Right] O2 Sat by Pulse Oximetry 11/25/19 11/25/19 11/25/19 00:36 00:47 00:50 Temperature 98.7 F Pulse Rate 86 92 H 89 Respiratory 20 Rate Blood Pressure 121/75 125/64 Blood Pressure 138/79 [Right] O2 Sat by Pulse 99 Oximetry 11/25/19 11/25/19 11/25/19 01:04 01:20 01:34 Temperature Pulse Rate 101 H 100 H 93 H Respiratory Rate Blood Pressure 128/61 135/72 133/77 Blood Pressure [Right] O2 Sat by Pulse Oximetry 11/25/19 11/25/19 11/25/19 01:50 02:04 02:21 Temperature Pulse Rate 90 85 95 H Respiratory Rate Blood Pressure 122/64 118/63 140/78 Blood Pressure [Right] O2 Sat by Pulse Oximetry 11/25/19 11/25/19 11/25/19 02:35 02:50 03:05 Temperature Pulse Rate 96 H 90 80 Respiratory Rate Blood Pressure 146/76 125/71 116/62 Blood Pressure [Right] O2 Sat by Pulse Oximetry 11/25/19 11/25/19 11/25/19 03:20 03:36 03:51 Temperature Pulse Rate 89 90 83 Respiratory Rate Blood Pressure 127/71 142/77 137/79 Blood Pressure [Right] O2 Sat by Pulse Oximetry 11/25/19 11/25/19 11/25/19 04:05 04:13 04:16 Temperature 97.7 F Pulse Rate 96 H 96 H 92 H Respiratory Rate Blood Pressure 132/78 Blood Pressure 132/78 [Right] O2 Sat by Pulse 93 Oximetry 11/25/19 11/25/19 11/25/19 04:20 05:20 06:20 Temperature Pulse Rate 89 86 84 Respiratory Rate Blood Pressure 128/85 134/87 126/81 Blood Pressure [Right] O2 Sat by Pulse Oximetry 11/25/19 11/25/19 11/25/19 06:54 06:59 07:04 Temperature Pulse Rate 97 H 87 155 H Respiratory Rate Blood Pressure Blood Pressure [Right] O2 Sat by Pulse 99 98 89 Oximetry 11/25/19 11/25/19 11/25/19 07:09 07:10 07:15 Temperature 98.1 F Pulse Rate 104 H 103 H Respiratory 20 Rate Blood Pressure Blood Pressure [Right] O2 Sat by Pulse 75 L 98 97 Oximetry 11/25/19 11/25/19 11/25/19 07:17 07:20 07:23 Temperature Pulse Rate 102 H 102 H 102 H Respiratory Rate Blood Pressure 136/80 Blood Pressure [Right] O2 Sat by Pulse 96 94 Oximetry 11/25/19 11/25/19 11/25/19 07:25 07:30 07:34 Temperature Pulse Rate 95 H 110 H 101 H Respiratory Rate Blood Pressure Blood Pressure [Right] O2 Sat by Pulse 99 99 94 Oximetry 11/25/19 11/25/19 11/25/19 07:35 07:40 07:45 Temperature Pulse Rate 97 H 98 H 104 H Respiratory Rate Blood Pressure Blood Pressure [Right] O2 Sat by Pulse 96 97 99 Oximetry 11/25/19 11/25/19 11/25/19 07:49 07:50 07:54 Temperature Pulse Rate 104 H 101 H 101 H Respiratory Rate Blood Pressure 148/75 Blood Pressure [Right] O2 Sat by Pulse 100 80 L Oximetry 11/25/19 11/25/19 11/25/19 08:00 08:02 08:06 Temperature Pulse Rate 62 Respiratory Rate Blood Pressure Blood Pressure [Right] O2 Sat by Pulse 79 L 83 L 80 L Oximetry 11/25/19 11/25/19 11/25/19 08:10 08:14 08:19 Temperature Pulse Rate 90 96 H Respiratory Rate Blood Pressure 135/79 Blood Pressure [Right] O2 Sat by Pulse 80 L 80 L 83 L Oximetry 11/25/19 11/25/19 11/25/19 08:24 08:31 08:38 Temperature Pulse Rate 63 50 L Respiratory Rate Blood Pressure Blood Pressure [Right] O2 Sat by Pulse 83 L 82 L 84 Oximetry 11/25/19 11/25/19 11/25/19 08:39 08:44 08:49 Temperature Pulse Rate 71 124 H 105 H Respiratory Rate Blood Pressure Blood Pressure [Right] O2 Sat by Pulse 82 L 100 99 Oximetry 11/25/19 11/25/19 11/25/19 08:50 08:54 08:59 Temperature Pulse Rate 100 H 104 H 97 H Respiratory Rate Blood Pressure 145/89 Blood Pressure [Right] O2 Sat by Pulse 97 96 Oximetry 11/25/19 11/25/19 11/25/19 09:00 09:04 09:06 Temperature Pulse Rate 99 H 97 H 90 Respiratory Rate Blood Pressure Blood Pressure [Right] O2 Sat by Pulse 94 98 94 Oximetry 11/25/19 11/25/19 11/25/19 09:09 09:14 09:19 Temperature Pulse Rate 91 H 95 H 89 Respiratory Rate Blood Pressure Blood Pressure [Right] O2 Sat by Pulse 97 98 98 Oximetry 11/25/19 11/25/19 11/25/19 09:20 09:24 09:29 Temperature Pulse Rate 92 H 103 H 89 Respiratory Rate Blood Pressure 128/69 Blood Pressure [Right] O2 Sat by Pulse 95 97 Oximetry 11/25/19 11/25/19 11/25/19 09:34 09:36 09:39 Temperature Pulse Rate 89 98 H 92 H Respiratory Rate Blood Pressure Blood Pressure [Right] O2 Sat by Pulse 96 94 97 Oximetry 11/25/19 11/25/19 11/25/19 09:44 09:49 09:54 Temperature Pulse Rate 96 H 92 H 113 H Respiratory Rate Blood Pressure 130/75 Blood Pressure [Right] O2 Sat by Pulse 95 96 98 Oximetry 11/25/19 11/25/19 11/25/19 09:59 10:04 10:09 Temperature Pulse Rate 95 H 95 H 97 H Respiratory Rate Blood Pressure Blood Pressure [Right] O2 Sat by Pulse 96 97 97 Oximetry 11/25/19 11/25/19 11/25/19 10:14 10:19 10:24 Temperature Pulse Rate 94 H 105 H 96 H Respiratory Rate Blood Pressure 132/83 Blood Pressure [Right] O2 Sat by Pulse 98 100 98 Oximetry 11/25/19 11/25/19 11/25/19 10:29 10:35 10:37 Temperature Pulse Rate 108 H 116 H Respiratory Rate Blood Pressure Blood Pressure [Right] O2 Sat by Pulse 99 85 99 Oximetry 11/25/19 11/25/19 11/25/19 10:42 10:47 10:50 Temperature Pulse Rate 106 H 104 H 100 H Respiratory Rate Blood Pressure 174/99 Blood Pressure [Right] O2 Sat by Pulse 99 99 Oximetry 11/25/19 11/25/19 11/25/19 10:52 10:57 11:02 Temperature Pulse Rate 104 H 102 H 101 H Respiratory Rate Blood Pressure Blood Pressure [Right] O2 Sat by Pulse 100 99 99 Oximetry 11/25/19 11:07 Temperature Pulse Rate 97 H Respiratory Rate Blood Pressure Blood Pressure [Right] O2 Sat by Pulse 100 Oximetry - Exam Breasts: deferred Abdomen: Present: normal appearance, soft Uterus: Present: normal FHR: category 1 Uterine Contraction Monitor Mode: External Cervical Dilatation: 2 (per nurse) Cervical Effacement Percentage: 90 (per nurse) station: -1 Uterine Contraction Pattern: Regular Uterine Tone Measurement Phase: Contraction Uterine Contraction Intensity: Mild - Labs Labs: Abnormal Labs 11/24/19 19:13 WBC 14.2 H Laboratory Results - last 24 hr 11/24/19 11/24/19 11/24/19 19:13 19:13 19:50 WBC 14.2 H RBC 3.86 Hgb 11.7 Hct 34.2 MCV 89 MCH 30 MCHC 34 RDW 14.5 Plt Count 409 Creatinine 0.7 Estimated GFR > 60 Uric Acid 5.3 AST 12 ALT 14 Lactate Dehydrogenase 147 Urine Color Yellow Urine Turbidity Slightly-cloudy Urine pH 6.0 Ur Specific [place] 1.019 Urine Protein <15 mg/dl Urine Glucose (UA) Neg Urine Ketones 20 Urine Blood Neg Urine Nitrite Neg Urine Bilirubin Neg Urine Urobilinogen < 2.0 Ur Leukocyte Esterase Neg Urine WBC (Auto) 2.0 Urine RBC (Auto) 2.0 U Epithel Cells (Auto) 2.0 Urine Bacteria (Auto) 2+ Urine Mucus Few
[2019-11-25] MEDS ORDERED: DEXMEDETOMIDINE 200 MCG/2 ML VIAL IV ONE (12:27)
[2019-11-25] MEDS ORDERED: NALOXONE 2 MG/2 ML INJ IV PRN (13:13)
[2019-11-25] MEDS ORDERED: ePHEDrine SULFATE 50 MG/1 ML INJ IV PRN (13:13)
[2019-11-25] MEDS ORDERED: fentaNYL-BUPIV 2 MCG/ML-0.125% 200 MCG/100 ML BAG EPIDURAL SCH (14:00)
[2019-11-25] MEDS ORDERED: AMPICILLIN/NS 2 GM/100 ML 2 GM/100 ML BAG IV ONE (14:00)
[2019-11-25] MEDS ORDERED: METOCLOPRAMIDE 10 MG/2 ML INJ ONE (16:21)
[2019-11-25] MEDS ORDERED: BICITRA ORAL LIQD 30ML ONE (16:21)
[2019-11-25] MEDS ORDERED: FAMOTIDINE 20 MG/2 ML INJ IV ONE (16:22)
[2019-11-25] MEDS ORDERED: ceFAZolin/Water 2 GM/20 ML 0 GM/0 ML SYRINGE IV ONE (16:22)
[2019-11-25] MEDS ORDERED: LIDOCAINE (2%) 20 MG/1 ML VIAL 20 ML MDV INFILTRATI ONE (16:31)
--- NOTE | 2019-11-25 17:00 | Procedure Note ---
OB Delivery Note - Delivery Date of Delivery: 11/25/19 Surgeon: HAFSA SÁNCHEZ Estimated blood loss: 200cc - Vaginal Delivery presentation: compound Delivery position: OP Intrapartum events: mult.variable deceleratio Delivery induction: cervidil Delivery augmentation: rupture of membranes, pitocin Delivery monitor: external FHT, external uterine Route of delivery: vacuum extraction Indicators for instrumentation: nonreassuring FHR tracing Delivery placenta: spontaneous Delivery cord: 3 umbilical vessels Episiotomy: none Delivery laceration: 1st degree (perineal) Delivery repair: vicryl Anesthesia: epidural Delivery comments: Infant delivered OA after reducing the presenting hand, over intact perineum with epidural anesthesia. placed on Mom's chest for [id number] bonding and delayed cord clamping, cut by Dad. - Infant A at 1 minute: 8 at 5 minutes: 9 Infant Gender: Male (2547gms)
[2019-11-25] MEDS ORDERED: PROMETHAZINE 25 MG TAB PO PRN (17:03)
[2019-11-25] MEDS ORDERED: PROMETHAZINE 25 MG RECT SUPP PR PRN (17:03)
[2019-11-25] MEDS ORDERED: ACETAMINOPHEN 325 MG TAB PO PRN (17:03)
[2019-11-25] MEDS ORDERED: WITCH HAZEL/ GLYCERIN PAD TP PRN (17:03)
[2019-11-25] MEDS ORDERED: LANOLIN/ZINC/DIMETHICONE (LANSINOH) 7 GM TP PRN (17:03)
[2019-11-25] MEDS ORDERED: diphenhydrAMINE 25 MG CAP PO PRN (17:03)
[2019-11-25] MEDS ORDERED: ONDANSETRON 4 MG/2 ML INJ IV PRN (17:03)
--- NOTE | 2019-11-25 17:50 | Ultrasound Report ---
ULTRASOUND OBSTETRIC Limited INDICATION / CLINICAL INFORMATION: r/o breech. Clinical Gestational Age (GA): TECHNIQUE: Transabdominal. COMPARISON: OB ultrasound 04/21/2019 FINDINGS: There is a single intrauterine . Heart Rate: 140 beats per minute. Position: cephalic. Cervix: Open containing limb. IMPRESSION: 1. Single, living intrauterine with estimated sonographic age of 37 weeks, day(s). 2. Open cervix with upper extremity extending into vagina. According to the general freight agent notes, Dr. Dominguez manually pushed the hand back in and vaginally delivered a baby. Signer Name: Rudi Livingston MD Signed: 11/25/2019 5:45 PM Workstation Name: [id number]
[2019-11-25] MEDS ORDERED: OXYTOCIN 20 UNIT/1000ML DRIP 20 UNITS/1,000 ML BAG IV SCH (18:00)
[2019-11-25] MEDS: IBUPROFEN 600 MG TAB PO SCH (18:10)
[2019-11-26] MEDS: IBUPROFEN 600 MG TAB PO SCH ×3 (00:01→16:01)
[2019-11-26] MEDS: FERROUS SULFATE 325 MG TAB PO SCH ×2 (00:01→10:00)
[2019-11-26 06:38] LABS: Hematocrit 31.6 % (30.3-42.9); Hemoglobin 10.5 gm/dl (10.1-14.3)
[2019-11-26] MEDS: HYDROcodone/ACETAMINOPHEN 5-325 MG TAB PO PRN (08:22)
[2019-11-26] MEDS: NIFEdipine XL 30 MG TAB PO SCH (09:59)
[2019-11-26] MEDS: PRENATAL VIT27-FE FUMARATE-FOLIC ACID VIT TAB PO SCH (09:59)
--- NOTE | 2019-11-26 12:34 | Progress Note ---
Assessment and Plan - Patient Problems (1) 37 weeks gestation of Onset Date: 11/24/19 Current Visit: Yes Status: Resolved (2) Morbid obesity with BMI of 50.0-59.9, adult Onset Date: 11/24/19 Current Visit: Yes Status: Chronic (3) Hypertension Onset Date: 11/24/19 Current Visit: No Status: Chronic Qualifiers: Hypertension type: essential hypertension Qualified Code(s): I10 - Essential (primary) hypertension (4) (normal spontaneous vaginal delivery) Onset Date: 11/26/19 Current Visit: Yes Status: Resolved Plan to address problem: A: S/P - PPD #1 Doing well Asymptomatic anemia - stable P: May go home today. Subjective - Subjective Date of service: 11/26/19 Principal diagnosis: s/p - PPD #1 Interval history: Pt is feeling well without complications. Bleeding improved. Patient reports: appetite normal, voiding normally, pain well controlled, flatus, ambulating normally, no dizzy ambulation, no nauseated : doing well, nursing well, bottle feeding Objective - Vital Signs Latest vital signs: Vital Signs Temp Pulse Resp BP BP Pulse Ox 11/26/19 11:58 97.7 F 76 18 121/86 97 11/26/19 07:56 98.0 F 91 H 18 128/87 98 11/26/19 04:00 98.4 F 78 18 121/79 11/26/19 00:00 98.6 F 71 18 118/68 11/25/19 20:00 98.6 F 71 18 126/73 11/25/19 17:59 104 H 132/65 11/25/19 17:44 106 H 137/61 11/25/19 17:30 98.1 F 11/25/19 17:14 121 H 118/59 11/25/19 17:00 98.1 F 101 H 117/58 11/25/19 16:57 108 H 111/65 11/25/19 16:54 104 H 112/60 11/25/19 16:53 106 H 117/59 11/25/19 16:52 106 H 99 11/25/19 16:47 116 H 100 11/25/19 16:42 139 H 100 11/25/19 16:37 100 H 100 11/25/19 16:32 118 H 100 11/25/19 16:29 112 H 121/69 11/25/19 16:27 107 H 100 11/25/19 16:22 105 H 100 11/25/19 16:17 114 H 100 11/25/19 16:14 106 H 115/63 11/25/19 16:12 111 H 100 11/25/19 16:07 111 H 100 11/25/19 16:02 103 H 100 11/25/19 16:00 107 H 131/81 11/25/19 15:57 80 99 11/25/19 15:52 87 99 11/25/19 15:47 89 100 11/25/19 15:44 88 99/54 11/25/19 15:42 74 100 11/25/19 15:37 83 98 11/25/19 15:32 72 98 11/25/19 15:29 93 H 104/56 11/25/19 15:27 75 99 11/25/19 15:22 84 99 11/25/19 15:17 77 99 11/25/19 15:14 82 87/52 11/25/19 15:12 87 99 11/25/19 15:07 77 99 11/25/19 15:02 87 99 11/25/19 14:59 86 99/56 11/25/19 14:57 89 99 11/25/19 14:52 88 99 11/25/19 14:47 89 98 11/25/19 14:44 71 100/59 11/25/19 14:42 90 99 11/25/19 14:37 87 99 11/25/19 14:32 68 98 11/25/19 14:30 98.1 F 18 11/25/19 14:29 93 H 101/56 11/25/19 14:27 92 H 98 11/25/19 14:22 94 H 100 11/25/19 14:17 91 H 100 11/25/19 14:14 94 H 109/63 11/25/19 14:12 98 H 99 11/25/19 14:07 88 100 11/25/19 14:02 91 H 100 11/25/19 13:59 96 H 103/59 11/25/19 13:57 100 H 100 11/25/19 13:54 91 H 99/57 11/25/19 13:52 100 H 99 11/25/19 13:47 90 99 01/17/20 13:44 86 90/55 11/25/19 13:42 78 99 11/25/19 13:37 87 99 11/25/19 13:32 78 98 11/25/19 13:29 91 H 90/43 94 11/25/19 13:27 95 H 98 11/25/19 13:24 100 H 92 11/25/19 13:22 91 H 98 11/25/19 13:17 84 99 11/25/19 13:16 99 H 94 11/25/19 13:15 87 104/55 11/25/19 13:12 90 99 11/25/19 13:07 98 H 99 11/25/19 13:02 97 H 99 11/25/19 12:58 96 H 115/59 11/25/19 12:57 94 H 100 11/25/19 12:56 94 H 114/57 11/25/19 12:54 104 H 117/61 11/25/19 12:52 103 H 126/68 100 11/25/19 12:50 95 H 124/63 11/25/19 12:48 112 H 147/65 11/25/19 12:47 108 H 99 11/25/19 12:46 98 H 137/77 11/25/19 12:44 97 H 143/76 11/25/19 12:42 94 H 100 11/25/19 12:37 91 H 100 11/25/19 12:34 103 H 148/82 Intake and Output 11/25/19 11/26/19 11/26/19 22:59 06:59 14:59 Intake Total 240 Output Total 550 Balance -550 240 Intake: Oral 240 Output: Urine 550 Indwelling Catheter 450 Void 100 Other: Total, Intake Amount 240 Total, Output Amount 100 # Voids Void 1 1 Estimated Blood Loss 200 - Exam Breasts: Present: deferred Abdomen: Present: normal appearance, soft Uterus: Present: normal, firm, fundal height below umbilicus Extremities: Present: normal - Labs Labs: Laboratory Tests 11/24/19 11/24/19 11/24/19 19:13 19:13 19:50 WBC 14.2 H RBC 3.86 Hgb 11.7 Hct 34.2 MCV 89 MCH 30 MCHC 34 RDW 14.5 Plt Count 409 Creatinine 0.7 Estimated GFR > 60 Uric Acid 5.3 AST 12 ALT 14 Lactate Dehydrogenase 147 Urine Color Yellow Urine Turbidity Slightly-cloudy Urine pH 6.0 Ur Specific [place] 1.019 Urine Protein <15 mg/dl Urine Glucose (UA) Neg Urine Ketones 20 Urine Blood Neg Urine Nitrite Neg Urine Bilirubin Neg Urine Urobilinogen < 2.0 Ur Leukocyte Esterase Neg Urine WBC (Auto) 2.0 Urine RBC (Auto) 2.0 U Epithel Cells (Auto) 2.0 Urine Bacteria (Auto) 2+ Urine Mucus Few 11/26/19 04:57 WBC RBC Hgb 10.5 Hct 31.6 MCV MCH MCHC RDW Plt Count Creatinine Estimated GFR Uric Acid AST ALT Lactate Dehydrogenase Urine Color Urine Turbidity Urine pH Ur Specific [place] Urine Protein Urine Glucose (UA) Urine Ketones Urine Blood Urine Nitrite Urine Bilirubin Urine Urobilinogen Ur Leukocyte Esterase Urine WBC (Auto) Urine RBC (Auto) U Epithel Cells (Auto) Urine Bacteria (Auto) Urine Mucus
--- NOTE | 2019-11-26 13:11 | Discharge Summary ---
Providers - Providers Date of Admission: 11/25/19 14:30 Date of discharge: 11/26/19 Attending physician: HAFSA SÁNCHEZ Primary care physician: HAFSA SÁNCHEZ Hospitalization Reason for admission: induction of labor, IUP at term, other (Chronic hypertension) Delivery: Episiotomy: none Laceration: 1st degree Incision: normal Other procedures: none complications: none Discharge diagnosis: IUP at term delivered baby: male Hospital course: Unremarkable. Condition at discharge: Good Disposition: DC-01 TO HOME OR SELFCARE - Discharge Diagnoses (1) 37 weeks gestation of Status: Resolved (2) Morbid obesity with BMI of 50.0-59.9, adult Status: Chronic (3) Hypertension Status: Chronic Qualifiers: Hypertension type: essential hypertension Qualified Code(s): I10 - Essential (primary) hypertension Comment: take medication as prescribed (4) (normal spontaneous vaginal delivery) Status: Resolved Plan - Discharge Medications Prescriptions: Ferrous Sulfate [Feosol 325 MG tab] 325 mg PO BID #60 tablet Ibuprofen [Motrin 600 MG tab] 600 mg PO Q6H #30 tablet Vit-Fe Fumar-FA [ Vitamin] 1 each PO QDAY #30 tablet - Provider Discharge Summary Activity: routine, no sex for 6 weeks, no heavy lifting 4 weeks, no strenuous exercise Diet: routine Instructions: routine Additional instructions: [] Smoking cessation referral if applicable(refer to patient education folder for contact #) [] Refer to [facility]'s [facility] Booklet Call your doctor immediately for: * Fever > 100.5 * Heavy vaginal bleeding ( >1 pad per hour) * Severe persistent headache * Shortness of breath * Reddened, hot, painful area to leg or breast * Drainage or odor from incision. * Keep incision clean and dry at all times and follow doctor's instructions regarding bathing/showering - Follow up plan Follow up: HAFSA SÁNCHEZ MD [Primary Care Provider] - 6 Weeks YANE LANDAVERDE CNM [Advanced Practice Nurse] - 6 Weeks
[2019-11-26] MEDS ORDERED: TETANUS,DIPH,PERTUSS(ACELL) VACCINE 0.5 ML SYRINGE IM ONE (17:03)
[2019-11-26] MEDS ORDERED: MEASLES, MUMPS & RUBELLA 12,500 UNIT/0.5 ML VACCINE SUB-Q ONE (17:03)
--- NOTE | 2019-11-26 18:43 | Anesthesia Consultation ---
Anesthesia Consult and Med Hx Date of service: 11/26/19 - Airway Anesthetic Teeth Evaluation: Good ROM Head & Neck: Adequate Mental/Hyoid Distance: Adequate Mallampati Class: Class III Intubation Access Assessment: Probably Good - Pulmonary Exam CTA: Yes - Cardiac Exam Cardiac Exam: RRR - Pre-Operative Health Status ASA Pre-Surgery Classification: ASA3 Proposed Anesthetic Plan: Epidural - Pulmonary Hx Smoking: No Hx Asthma: No Hx Respiratory Symptoms: No SOB: No COPD: No Home Oxygen Therapy: No Hx Pneumonia: No Hx Sleep Apnea: No - Cardiovascular System Hx Hypertension: Yes (during ) Hx Coronary Artery Disease: No Hx Heart Attack/AMI: No Hx Angina: No Hx Percutaneous Transluminal Coronary Angioplasty (PTCA): No Hx Cardia Arrhythmia: No Hx Pacemaker: No Hx Internal Defibrillator: No Hx Valvular Heart Disease: No Hx Heart Murmur: No Hx Peripheral Vascular Disease: No - Central Nervous System Hx Neuromuscular Disorder: No Hx Seizures: No CVA: No Hx Back Pain: Yes Hx Psychiatric Problems: No - Gastrointestinal Hx Ulcer: No Hx Gastroesophageal Reflux Disease: Yes - Endocrine Hx Renal Disease: No Hx End Stage Renal Disease: No Hx Cirrhosis: No Hx Liver Disease: No Hx Insulin Dependent Diabetes: No Hx Non-Insulin Dependent Diabetes: No Hx Thyroid Disease: No Hx Hypothyroidism: No Hx Hyperthyroidism: No - Hematic Hx Anemia: Yes (this ) Hx Sickle Cell Disease: No - Other Systems Hx Alcohol Use: No Hx Substance Use: No Hx Cancer: No Hx Obesity: Yes
--- NOTE | 2019-11-26 18:44 | Post Anesthesia Evaluation ---
- Post Anesthesia Evaluation Patient Participated: Yes Airway Patent: Yes Stable Respiratory Function: Yes Nausea/Vomiting: No Temp > 96.8F: Yes Pain Manageable: Yes Adequeate Hydration: Yes Anesthesia Complications: No Block Receding Appropriately: Yes Patient on Ventilator: No
[2019-11-27] MEDS: IBUPROFEN 600 MG TAB PO SCH ×3 (00:12→23:06)
[2019-11-27] MEDS: HYDROcodone/ACETAMINOPHEN 5-325 MG TAB PO PRN ×2 (00:14→19:10)
[2019-11-27] MEDS: FERROUS SULFATE 325 MG TAB PO SCH ×5 (00:18→23:23)
[2019-11-27] MEDS: MAGNESIUM HYDROXIDE (MOM) ORAL LIQD UDC PO PRN (00:18)
[2019-11-27] MEDS: PRENATAL VIT27-FE FUMARATE-FOLIC ACID VIT TAB PO SCH (09:54)
[2019-11-27] MEDS: NIFEdipine XL 30 MG TAB PO SCH (09:54)
[2019-11-27] MEDS ORDERED: hydrALAZINE 25 MG TAB PO ONE (16:53)
[2019-11-27] MEDS: hydrALAZINE 25 MG TAB PO SCH (23:05)
[2019-11-28] MEDS: IBUPROFEN 600 MG TAB PO SCH ×3 (05:11→17:27)
[2019-11-28] MEDS: hydrALAZINE 25 MG TAB PO SCH ×3 (05:11→22:00)
[2019-11-28] MEDS: NIFEdipine XL 30 MG TAB PO SCH (09:21)
[2019-11-28] MEDS: PRENATAL VIT27-FE FUMARATE-FOLIC ACID VIT TAB PO SCH (09:21)
[2019-11-28] MEDS: FERROUS SULFATE 325 MG TAB PO SCH ×2 (09:21→22:00)
[2019-11-28] MEDS ORDERED: NIFEdipine XL 30 MG TAB PO SCH (10:00)
[2019-11-28] MEDS ORDERED: NIFEdipine XL 60 MG TAB PO SCH (10:00)
--- NOTE | 2019-11-28 10:33 | Progress Note ---
Assessment and Plan - Patient Problems (1) 37 weeks gestation of Onset Date: 11/24/19 Current Visit: Yes Status: Resolved (2) Morbid obesity with BMI of 50.0-59.9, adult Onset Date: 11/24/19 Current Visit: Yes Status: Chronic (3) Hypertension Onset Date: 11/24/19 Current Visit: No Status: Chronic Qualifiers: Hypertension type: essential hypertension Qualified Code(s): I10 - Essential (primary) hypertension (4) (normal spontaneous vaginal delivery) Onset Date: 11/26/19 Current Visit: Yes Status: Resolved Plan to address problem: A: S/P - PPD #3 Doing well Asymptomatic anemia - stable Chronic hypertension - uncontrolled on Procardia XL 30mg QD. Hydralazine 25mg TID added P: Will increase Procardia to 60mg QD. Obtain a Hospitalist consultation Subjective - Subjective Date of service: 11/28/19 Principal diagnosis: s/p - PPD #3 Interval history: Pt is feeling well without complications. She denies headaches or blurred vision. Patient reports: appetite normal, voiding normally, pain well controlled, flatus, ambulating normally, no dizzy ambulation, no nauseated [place]: doing well, nursing well, bottle feeding Objective - Vital Signs Latest vital signs: Vital Signs Temp Pulse Resp BP BP BP Pulse Ox 11/28/19 08:18 97.7 F 79 20 148/99 98 11/28/19 05:12 98.1 F 82 20 146/89 97 11/28/19 05:11 81 146/89 11/27/19 23:05 77 140/90 11/27/19 21:33 77 141/94 99 11/27/19 19:10 20 11/27/19 16:59 80 171/112 11/27/19 16:50 188/108 171/112 11/27/19 15:23 97.9 F 78 18 139/94 Intake and Output 11/27/19 11/28/19 11/28/19 22:59 06:59 14:59 Intake Total 720 480 Balance 720 480 Intake: Oral 720 480 Other: Total, Intake Amount 240 240 # Voids Void 3 1 - Exam Abdomen: Present: normal appearance, soft Uterus: Present: normal, firm, fundal height below umbilicus Extremities: Present: normal
--- NOTE | 2019-11-28 20:12 | Consultation ---
History of Present Illness - Reason for Consult Consult date: 11/28/19 Management of hypertension Requesting physician: HAFSA SÁNCHEZ - History of Present Illness Pt is a 34yo BF EDC 12/12/19; EGA 37 3/7 weeks presents to L&D from [facility] for induction of labor due to Chronic hypertension and BP's 139/94 on Procardia XL 30mg QD. She denies headaches, blurred vision or epigastric pains. She received care at [facility] since 7 weeks and co-managed by [facility] for Morbid Obesity and Chronic hypertension. records are available and GBS is unknown. I was asked to see the patient for the hospitalist team for management of hypertension Past History Past Medical History: hypertension 11/27/2019 Past Surgical History: no surgical history [facility] [employer] History: chlamydia (treated 11/17/19), herpes Family/Genetic History: heart disease, hypertension Social history: no significant social history, - Obstetrical History Expected Date of Delivery: 12/12/19--baby delivered Actual Gestation: 37 Week(s) 3 Day(s) : 5 Medications and Allergies Allergies Allergy/AdvReac Type Severity Reaction Status Date / Time No Known Allergies Allergy Verified 01/21/19 11:37 Home Medications Medication Instructions Recorded Confirmed Last Taken Type Ferrous Sulfate [Feosol 325 MG tab] 325 mg PO BID #60 tablet 01/30/14 11/24/19 11/24/19 09:00 Rx 325 mg Vit-Fe Fumar-FA [ 1 each PO QDAY #30 tablet 01/30/14 11/24/19 11/24/19 09:00 Rx Vitamin] Review of Systems All systems: negative Past History Social history: no significant social history, Medications and Allergies Allergies Allergy/AdvReac Type Severity Reaction Status Date / Time No Known Allergies Allergy Verified 01/21/19 11:37 Home Medications Medication Instructions Recorded Confirmed Last Taken Type Ferrous Sulfate [Feosol 325 MG tab] 325 mg PO BID #60 tablet 01/30/14 11/24/19 11/24/19 09:00 Rx 325 mg Vit-Fe Fumar-FA [ 1 each PO QDAY #30 tablet 01/30/14 11/24/19 11/24/19 09:00 Rx Vitamin] Procardia Xl 1 cap PO DAILY 11/24/19 11/24/19 11/24/19 09:00 History 30 MG Ferrous Sulfate [Feosol 325 MG tab] 325 mg PO BID #60 tablet 11/26/19 Unknown Rx Ibuprofen [Motrin 600 MG tab] 600 mg PO Q6H #30 tablet 11/26/19 Unknown Rx Vit-Fe Fumar-FA [ 1 each PO QDAY #30 tablet 11/26/19 Unknown Rx Vitamin] Active Meds: Active Medications Acetaminophen (Tylenol) 650 mg PO Q4H PRN PRN Reason: Pain MILD(1-3)/Fever >100.5/MELARA Acetaminophen/Hydrocodone Bitart ([place] 5/325) 2 each PO Q6H PRN PRN Reason: Pain, Moderate (4-6) Last Admin: 11/27/19 19:10 Dose: 2 each Documented by: Bisacodyl (Dulcolax) 10 mg [place] BID PRN PRN Reason: Constipation Diphenhydramine HCl (Benadryl) 25 mg PO Q6H PRN PRN Reason: Itching Ferrous Sulfate (Feosol) 325 mg PO BID [facility] Last Admin: 11/28/19 09:21 Dose: Not Given Documented by: Hydralazine HCl (Apresoline) 25 mg PO Q8HR [facility] Last Admin: 11/28/19 12:24 Dose: 25 mg Documented by: Oxytocin/Sodium Chloride (Pitocin/Ns 20 Unit/1000ml Drip) 20 units in 1,000 mls @ 250 mls/hr IV DIRECT JULIA Ibuprofen (Ibuprofen) 600 mg PO Q6H [facility] Last Admin: 11/28/19 17:27 Dose: 600 mg Documented by: Magnesium Hydroxide (Milk Of Magnesia) 30 ml PO HS PRN PRN Reason: Constipation Last Admin: 11/27/19 00:18 Dose: 30 ml Documented by: Multi-Ingredient Ointment (Lansinoh) 1 applic TP PRN PRN PRN Reason: Sore Nipples Multivitamins/Iron/Calcium ( Vitamin) 1 each PO QDAY [facility] Last Admin: 11/28/19 09:21 Dose: 1 each Documented by: Nifedipine (Procardia Xl) 60 mg PO QDAY [facility] Ondansetron HCl (Zofran) 4 mg IV Q8H PRN PRN Reason: Nausea And Vomiting Promethazine HCl (Phenergan) 25 mg PO Q6H PRN PRN Reason: Nausea And Vomiting Promethazine HCl (Phenergan) 25 mg [place] Q6H PRN PRN Reason: Nausea And Vomiting Promethazine HCl (Phenergan) 25 mg PO Q6H PRN PRN Reason: Nausea And Vomiting Witch Rubina/Glycerin (Tucks Pad) 1 each TP PRN PRN PRN Reason: Hemorrhoid/cleansing/soothing Exam - Constitutional Vitals: Temp Pulse Resp BP Pulse Ox 98.5 F 113 H 16 154/97 98 11/28/19 16:22 11/28/19 16:22 11/28/19 16:22 11/28/19 16:22 11/28/19 12:09 General appearance: Present: no acute distress, well-nourished - EENT Eyes: Present: PERRL ENT: hearing intact, clear oral mucosa - Neck Neck: Present: supple, normal ROM - Respiratory Respiratory effort: normal Respiratory: bilateral: CTA - Cardiovascular Heart rate: 76 Rhythm: regular Heart Sounds: Present: S1 & S2. Absent: rub, click - Extremities Extremities: pulses symmetrical, No edema Peripheral Pulses: within normal limits - Abdominal General gastrointestinal: Present: soft, non-tender, non-distended, normal bowel sounds Female genitourinary: Present: normal - Integumentary Integumentary: Present: clear, warm, dry - Musculoskeletal Musculoskeletal: gait normal, strength equal bilaterally - Psychiatric Psychiatric: appropriate mood/affect, intact judgment & insight - Neurologic Neurologic: CNII-XII intact, moves all extremities Results - Labs CBC & Chem 7: 11/26/19 04:57 11/24/19 19:13 Assessment and Plan - Patient Problems (1) Hypertension Onset Date: 11/24/19 Current Visit: No Status: Chronic Qualifiers: Hypertension type: essential hypertension Qualified Code(s): I10 - Essential (primary) hypertension Plan to address problem: Patient is on Procardia 60 mg once a day Blood pressure still a bit high Blood pressure trending down. We will discharge the patient on Procardia XL brand name 60 mg once a day Follow-up with primary care in 1 to 2 weeks. Less salt intake Exercise. (2) DVT prophylaxis Current Visit: Yes Status: Acute Plan to address problem: Lovenox 30 mg subcu daily and GI prophylaxis (3) Discharge planning issues Current Visit: Yes Status: Acute Plan to address problem: Patient is cleared for discharge from medicine point of view
[2019-11-28] MEDS: carvediloL 6.25 MG TAB PO SCH (22:00)
[2019-11-28] MEDS: MAGNESIUM HYDROXIDE (MOM) ORAL LIQD UDC PO PRN (22:27)
[2019-11-28] MEDS: HYDROcodone/ACETAMINOPHEN 5-325 MG TAB PO PRN (22:27)
[2019-11-29] MEDS: IBUPROFEN 600 MG TAB PO SCH
[2019-11-29] MEDS: carvediloL 6.25 MG TAB PO SCH (08:19)
--- NOTE | 2019-11-29 08:35 | Progress Note ---
Assessment and Plan - Patient Problems (1) Hypertension Onset Date: 11/24/19 Current Visit: No Status: Chronic Qualifiers: Hypertension type: essential hypertension Qualified Code(s): I10 - Brandon rodriguez (primary) hypertension Plan to address problem: Patient is on Procardia 60 mg once a day Blood pressure still a bit high Blood pressure trending down. We will discharge the patient on Procardia XL brand name 60 mg once a day Follow-up with primary care in 1 to 2 weeks. Less salt intake Exercise. (2) DVT prophylaxis Current Visit: Yes Status: Acute Plan to address problem: Lovenox 30 mg subcu daily and GI prophylaxis (3) Discharge planning issues Current Visit: Yes Status: Acute Plan to address problem: Patient is cleared for discharge from medicine point of view Subjective Date of service: 11/29/19 Principal diagnosis: s/p - PPD #3 Interval history: Patient symptomatically better. Blood pressure trending down. Blood pressure is 138/78. Objective - Constitutional Vitals: Vital Signs - 12hr 11/28/19 11/28/19 11/29/19 21:13 23:40 04:04 Temperature 98.5 F 98.5 F 98.5 F Pulse Rate 99 H 81 86 Respiratory 18 18 18 Rate Blood Pressure 144/96 138/78 Blood Pressure 152/89 [Left] O2 Sat by Pulse 97 98 86 Oximetry General appearance: Present: no acute distress, well-nourished - EENT Eyes: PERRL, EOM intact ENT: hearing intact, clear oral mucosa Ears: bilateral: normal - Neck Neck: supple, normal ROM - Respiratory Respiratory effort: normal Respiratory: bilateral: CTA - Breasts Breasts: normal - Cardiovascular Heart rate: 78 Rhythm: regular Heart Sounds: Present: S1 & S2. Absent: gallop, rub Extremities: pulses intact, No edema, normal color, Full ROM - Gastrointestinal General gastrointestinal: Present: soft, non-tender, non-distended, normal bowel sounds - Genitourinary Female genitourinary: normal - Integumentary Integumentary: clear, warm, dry - Musculoskeletal Musculoskeletal: 1, strength equal bilaterally - Neurologic Neurologic: moves all extremities - Psychiatric Psychiatric: memory intact, appropriate mood/affect, intact judgment & insight - Labs CBC & Chem 7: 11/26/19 04:57 11/24/19 19:13
[2019-11-29] MEDS: PRENATAL VIT27-FE FUMARATE-FOLIC ACID VIT TAB PO SCH (09:56)
[2019-11-29] MEDS: hydrALAZINE 25 MG TAB PO SCH (09:58)
[2019-11-29] MEDS ORDERED: NIFEdipine XL 60 MG TAB PO SCH (10:00)
[2019-11-29 10:29] VITALS: BP 123/64
== END 2019-11-29 11:45 | disposition home or self-care (01) | DRG 774 ==
LOC: TRG 16:48 → LD 16:49 → TRG 11-25 14:30 → LD 11-25 14:30 → OB 11-25 20:38
PROVIDERS: ADMIT Obstetrics & Gynecology; ATTEND Obstetrics & Gynecology
PROC: 10D07Z6 Extraction of Products of Conception, Vacuum, Via Natural or Artificial Opening (ICD-10-PCS; principal; 2019-11-25)
PROC: 0HQ9XZZ Repair Perineum Skin, External Approach (ICD-10-PCS; 2019-11-25)
PROC: 3E0P7VZ Introduction of Hormone into Female Reproductive, Via Natural or Artificial Opening (ICD-10-PCS; 2019-11-25)
PROC: 3E0R3BZ Introduction of Anesthetic Agent into Spinal Canal, Percutaneous Approach (ICD-10-PCS; 2019-11-25)
PROC: 00HU33Z Insertion of Infusion Device into Spinal Canal, Percutaneous Approach (ICD-10-PCS; 2019-11-25)
PROC: 3E0234Z Introduction of Serum, Toxoid and Vaccine into Muscle, Percutaneous Approach (ICD-10-PCS; 2019-11-26)
PROC: 3E0134Z Introduction of Serum, Toxoid and Vaccine into Subcutaneous Tissue, Percutaneous Approach (ICD-10-PCS; 2019-11-26)
DX: O10.92 Unspecified pre-existing hypertension complicating childbirth (principal); O99.214 Obesity complicating childbirth; E66.01 Morbid (severe) obesity due to excess calories; O99.02 Anemia complicating childbirth; K21.9 Gastro-esophageal reflux disease without esophagitis; O76 Abnormality in fetal heart rate and rhythm complicating labor and delivery; O98.82 Other maternal infectious and parasitic diseases complicating childbirth; O99.62 Diseases of the digestive system complicating childbirth; O70.0 First degree perineal laceration during delivery; Z3A.37 37 weeks gestation of pregnancy; Z37.0 Single live birth; Z82.49 Family history of ischemic heart disease and other diseases of the circulatory system; Z23 Encounter for immunization
CPT/HCPCS: 36415; 59200; 76815; 81001; 82565; 83615; 84450; 84460; 84550; 85014; 85018; 85027; G0378; J0290; J0595; J0690; J2590; J2765; J3105; J3490; J7120

== ENCOUNTER 2020-09-11 18:11 | Observation (INO) | payer MEDICAID ==
[2020-09-11] MEDS ORDERED: LACTATED RINGERS 1,000 ML IV SCH (19:00)
[2020-09-11 19:30] LABS: Bacteria,Urine 1+ /HPF (Negative); Bilirubin,Urine NEG (Negative); Blood,Urine NEG (Negative); Color,Urine Yellow (Yellow); Mucus,Urine FEW /HPF; Protein,Urine <15 mg/dL mg/dL (Negative); Urobilinogen,Urine < 2.0 mg/dL (<2.0)
[2020-09-11 19:43] LABS: Hematocrit 32.1 % (30.3-42.9); Hemoglobin 11.5 gm/dl (10.1-14.3); Mean Corpuscular HGB Conc 36 % (30-34); Mean Corpuscular Volume 88 fl (79-97); Platelet Count 432 K/mm3 (140-440); Red Blood Count 3.66 M/mm3 (3.65-5.03); Red Cell Distribution Width 14.2 % (13.2-15.2)
[2020-09-11 19:51] LABS: Alanine Aminotransferase 18 units/L (7-56); Uric Acid 4.5 mg/dL (3.5-7.6)
[2020-09-11] MEDS ORDERED: ACETAMINOPHEN 325 MG TAB PO PRN (20:22)
[2020-09-12 05:48] VITALS: BP 133/77
[2020-09-12] MEDS ORDERED: PRENATAL VIT27-FE FUMARATE-FOLIC ACID VIT TAB PO SCH (10:00)
== END 2020-09-12 07:17 | disposition home or self-care (01) ==
LOC: TRG 18:11 → APU 18:13 → TRG 20:23 → LD 21:08
PROVIDERS: ADMIT Obstetrics & Gynecology; ATTEND Obstetrics & Gynecology
DX: O10.913 Unspecified pre-existing hypertension complicating pregnancy, third trimester (principal); Z3A.35 35 weeks gestation of pregnancy; Z98.890 Other specified postprocedural states
CPT/HCPCS: 36415; 59025; 81001; 82565; 83615; 84450; 84460; 84550; 85027; 96374; 96376; G0378; 96360; 96361

== ENCOUNTER 2020-10-07 00:26 | Inpatient (IN) | payer MEDICAID ==
[2020-10-07] MEDS ORDERED: TERBUTALINE 1 MG/1 ML INJ SUB-Q PRN (01:26)
[2020-10-07] MEDS ORDERED: fentaNYL 100 MCG/2 ML INJ IV PRN (01:26)
[2020-10-07] MEDS ORDERED: AMPICILLIN/NS 2 GM/100 ML 2 GM/100 ML BAG IV ONE (01:26)
[2020-10-07] MEDS ORDERED: ePHEDrine SULFATE 50 MG/1 ML INJ IV PRN (01:26)
[2020-10-07] MEDS ORDERED: LIDOCAINE (2%) 20 MG/1 ML VIAL 20 ML MDV INFILTRATI ONE (01:26)
[2020-10-07] MEDS ORDERED: MINERAL OIL 30 ML ORAL LIQD PO PRN (01:26)
[2020-10-07] MEDS ORDERED: LACTATED RINGERS 1,000 ML IV SCH (01:30)
[2020-10-07] MEDS ORDERED: OXYTOCIN 10 UNIT/1 ML INJ ONE (01:41)
[2020-10-07] MEDS ORDERED: OXYTOCIN DRIP 30 UNITS/500 ML BAG IV SCH ×2 (02:00)
[2020-10-07] MEDS ORDERED: MAGNESIUM HYDROXIDE (MOM) ORAL LIQD UDC PO PRN (02:23)
[2020-10-07] MEDS ORDERED: WITCH HAZEL/ GLYCERIN PAD TP PRN (02:23)
[2020-10-07] MEDS ORDERED: LANOLIN/ZINC/DIMETHICONE (LANSINOH) 7 GM TP PRN (02:23)
--- NOTE | 2020-10-07 02:27 | History and Physical Report ---
History of Present Illness Date of examination: 10/07/20 Date of admission: 10/07/2020 Chief complaint: Contractions History of present illness: 35 year old present to L&D in active advanced labor. Patient denies vaginal bleeding or leaking of fluid. Patient states she received care at [facility]; records are not available. Patient states her EDC is 10/18/2020. labs and PIH labs were drawn upon admission. Patient reports the following problems during : chronic hypertension (on Labetalol), GBS positive, obesity. Past History Past Medical History: hypertension, other (obesity) Past Surgical History: no surgical history [employer] History: denies: chlamydia, gonorrhea, hepatitis B, hepatitis C, herpes, HIV, syphilis, trichomonas Family/Genetic History: hypertension, stroke Social history: lives with family, full code. denies: smoking, alcohol abuse, prescription drug abuse, IV drug use - Obstetrical History Expected Date of Delivery: 10/18/20 Actual Gestation: 38 Week(s) 3 Day(s) : 5 Para: 4 Hx # Term Pregnancies: 4 Number of Pregnancies: 0 Spontaneous Abortions: 0 Induced : 0 Number of Living Children: 5 Medications and Allergies Allergies Allergy/AdvReac Type Severity Reaction Status Date / Time No Known Allergies Allergy Verified 01/21/19 11:37 Home Medications Medication Instructions Recorded Confirmed Last Taken Type Labetalol 100mg TAB 100 mg PO BID 09/11/20 09/11/20 09/11/20 10:00 History 100 MG Active Meds: Active Medications Hydrocodone Bitart/Acetaminophen ([place] 5/325) 2 each PO Q6H PRN PRN Reason: Pain, Moderate (4-6) Bisacodyl (Dulcolax) 10 mg [place] BID PRN PRN Reason: Constipation Ephedrine Sulfate (Ephedrine Sulfate) 10 mg IV Q2M PRN PRN Reason: Hypotension Oxytocin/Sodium Chloride (Pitocin/Ns 30 Unit/500ml) 30 units in 500 mls @ 2 mls/hr IV TITR JULIA; Protocol Lactated Ringer's (Lactated Ringers) 1,000 mls @ 125 mls/hr IV DIRECT JULIA Oxytocin/Sodium Chloride (Pitocin/Ns 30 Unit/500ml) 30 units in 500 mls @ 40 mls/hr IV TITR JULIA; Protocol Ibuprofen (Ibuprofen) 600 mg PO Q6H JULIA Magnesium Hydroxide (Milk Of Magnesia) 30 ml PO HS PRN PRN Reason: Constipation Multi-Ingredient Ointment (Lansinoh) 1 applic TP PRN PRN PRN Reason: Sore Nipples Sodium Chloride (Sodium Chloride Flush Syringe 10 Ml) 10 ml IV PRN NR Terbutaline Sulfate ([place]) 0.25 mg SUB-Q ONCE PRN PRN Reason: Hyperstimulation/Hypertonicity Witch Rubina/Glycerin (Tucks Pad) 1 each TP PRN PRN PRN Reason: Hemorrhoid/cleansing/soothing Review of Systems All systems: negative (contractions) - Vital Signs Vital signs: Vital Signs Temp Pulse Resp BP 98.2 F 95 H 19 156/87 10/07/20 00:51 10/07/20 00:51 10/07/20 00:51 10/07/20 00:51 Temp Pulse Resp BP Pulse Ox 98.2 F 100 H 19 156/87 97 10/07/20 00:51 10/07/20 01:09 10/07/20 00:51 10/07/20 00:51 10/07/20 01:09 - Physical Exam Abdomen: Positive: normal appearance, soft. Negative: distention, tenderness, guarding, rigidity Genitourinary (Female): Positive: normal external genitalia, normal perenium. Negative: perineal/vulvar lesions Vagina: Positive: normal moisture Uterus: Positive: enlarged. Negative: tender Anus/Rectum: Positive: normal perianal skin Extremities: Positive: normal. Negative: tenderness - Obstetrical FHR: category 1 Uterine Contraction Monitor Mode: External Cervical Dilatation: 7 Cervical Effacement Percentage: 90 station: -1 Uterine Contraction Pattern: Regular Uterine Contraction Intensity: Moderate Results Result Diagrams: 10/07/20 02:00 10/07/20 02:00 All other labs normal. Assessment and Plan A: at 38 weeks, 3 days gestation. Active labor. GBS positive. Chronic hypertension. Obesity. No records. P: Admit. GBS prophylaxis. Anticipate vaginal . Request records. labs and PIH labs drawn upon arrival.
--- NOTE | 2020-10-07 02:27 | Procedure Note ---
OB Delivery Note - Delivery Date of Delivery: 10/07/20 - Vaginal Delivery presentation: vertex Delivery position: OA Intrapartum events: precipitous labor- <3hr Delivery induction: none Delivery monitor: external FHT, external uterine Route of delivery: Delivery placenta: spontaneous Delivery cord: 3 umbilical vessels Episiotomy: none Delivery laceration: 1st degree Delivery repair: vicryl Anesthesia: none Delivery comments: Spontaneous vaginal delivery at 02:01 of liveborn male weighing 3.047 kg over first degree laceration with apgars of 8/9. was atraumatic; no nuchal cord. Baby placed skin to skin with mom immediately after ; spontaneous cry and respirations. Baby bulb suctioned and dried with warm towels. 3 vessel cord double clamped and cut. Cord blood collected. Spontaneous delivery of intact placenta and membranes by griffith mechanism. EBL 250 cc. Pitocin to IV fluids after delivery of placenta. Fundus firm and midline. Small first degree perineal laceration repaired with 3-0 vicryl. No other lacerations noted. Small labial hematoma noted. Vaginal sweep negative. Sponge count correct. Mother and baby stable.
[2020-10-07 02:45] LABS: Hematocrit 33.1 % (30.3-42.9); Hemoglobin 11.2 gm/dl (10.1-14.3); Mean Corpuscular HGB Conc 34 % (30-34); Mean Corpuscular Volume 89 fl (79-97); Platelet Count 427 K/mm3 (140-440); Red Blood Count 3.71 M/mm3 (3.65-5.03); Red Cell Distribution Width 14.5 % (13.2-15.2)
[2020-10-07 03:06] LABS: Alanine Aminotransferase 13 units/L (7-56); Albumin 3.8 g/dL (3.9-5); Blood Urea Nitrogen 10 mg/dL (7-17); Calcium 9.2 mg/dL (8.4-10.2); Hemolysis Index 0
[2020-10-07 03:08] LABS: BUN/Creatinine Ratio 17
[2020-10-07] MEDS: HYDROcodone/ACETAMINOPHEN 5-325 MG TAB PO PRN ×4 (03:18→22:18)
[2020-10-07 03:48] LABS: Uric Acid 5.3 mg/dL (3.5-7.6)
[2020-10-07] MEDS ORDERED: IBUPROFEN 600 MG TAB PO SCH (04:30)
[2020-10-07] MEDS ORDERED: OXYTOCIN 10 UNIT/1 ML INJ IM ONE (05:37)
[2020-10-07 06:26] LABS: Hematocrit 32.4 % (30.3-42.9)
[2020-10-07 06:54] LABS: Hepatitis C Virus Antibody Non-Reactive (NonReactive)
[2020-10-07] MEDS: DOCUSATE SODIUM 100 MG CAP PO SCH ×2 (09:21→21:23)
[2020-10-07 10:08] LABS: Amphetamine Screen,Urine Negative; Benzodiazepines Screen,Urine Negative; Cannabinoid Screen,Urine Negative; Cocaine Screen,Urine Negative; Methadone Screen,Urine Negative; Opiate Screen,Urine Negative
[2020-10-07 10:24] LABS: Bacteria,Urine 1+ /HPF (Negative); Bilirubin,Urine NEG (Negative); Blood,Urine LG (Negative); Color,Urine Red (Yellow); Urobilinogen,Urine < 2.0 mg/dL (<2.0)
[2020-10-07 10:27] LABS: RBC,Urine > 180.0 /HPF (0.0-6.0)
--- NOTE | 2020-10-07 15:24 | Event Note ---
Date: 10/07/20 Urine culture pending. Urinalysis shows 69 WBC/hpf. Rocephin started pending urine culture results.
[2020-10-07] MEDS ORDERED: cefTRIAXone/NS 1 GM/50 ML 1 GM/50 ML BAG IV SCH (16:00)
[2020-10-08] MEDS: HYDROcodone/ACETAMINOPHEN 5-325 MG TAB PO PRN ×4 (04:11→22:02)
[2020-10-08] MEDS: DOCUSATE SODIUM 100 MG CAP PO SCH ×2 (10:29→22:01)
--- NOTE | 2020-10-08 11:56 | Progress Note ---
Assessment and Plan A: PP Day #1 CHTN Maternal Obesity Elevated WBC P: Follow Routine PP Orders Continue Labetalol 200mg PO BID (continue @ home) Urine C&S Pending D/C Home today per routine orders Motrin 800mg PO q 8 hours (called to [facility]) RTO in 3 Weeks Subjective - Subjective Date of service: 10/08/20 Patient reports: appetite normal, voiding normally, pain well controlled, flatus, ambulating normally, other (Denies HAs, Visual Changes, N&V, Dizziness; taking Labetolol 200mg PO BID; has script at home. Also Denies Dysuria) : doing well, bottle feeding (and ) Objective - Vital Signs Latest vital signs: Vital Signs Temp Pulse Resp BP BP Pulse Ox 10/08/20 08:15 98 F 72 20 140/74 10/08/20 05:10 98.0 F 77 18 121/70 97 10/08/20 00:58 98.1 F 83 20 134/82 97 10/07/20 21:23 75 129/76 10/07/20 20:46 98.2 F 83 18 129/76 98 10/07/20 16:04 98.7 F 81 20 147/87 95 10/07/20 12:08 98.3 F 85 20 143/90 100 Intake and Output 10/07/20 10/08/20 10/08/20 22:59 06:59 14:59 Intake Total 240 720 320 Balance 240 720 320 Intake: Oral 240 320 Intake, Free Water 720 Other: Total, Intake Amount 240 320 # Voids Void 1 2 1 - Exam Breasts: Present: normal Cardiovascular: Present: Regular rate Lungs: Present: Clear to auscultation, Normal air movement Abdomen: Present: normal appearance, soft, normal bowel sounds Uterus: Present: normal, firm, fundal height below umbilicus Extremities: Present: normal
--- NOTE | 2020-10-08 11:59 | Discharge Summary ---
Providers - Providers Date of Admission: 10/07/20 01:26 Date of discharge: 10/08/20 Attending physician: PRETTY GU Primary care physician: PRETTY GU Hospitalization Reason for admission: active labor Delivery: Episiotomy: none Laceration: 1st degree Other procedures: none complications: none Discharge diagnosis: IUP at term delivered [place] baby: male Condition at discharge: Good Disposition: [id number] TO HOME OR SELFCARE Plan - Provider Discharge Summary Activity: routine, no sex for 6 weeks, no heavy lifting 4 weeks, no strenuous exercise Diet: routine Instructions: routine Additional instructions: [] Smoking cessation referral if applicable(refer to patient education folder for contact #) [] Refer to [facility]'s [facility] Booklet Call your doctor immediately for: * Fever > 100.5 * Heavy vaginal bleeding ( >1 pad per hour) * Severe persistent headache * Shortness of breath * Reddened, hot, painful area to leg or breast * Drainage or odor from incision. * Keep incision clean and dry at all times and follow doctor's instructions regarding bathing/showering - Follow up plan Follow up: PRETTY GU MD [Primary Care Provider] - 09/30/21
[2020-10-09] MEDS: DOCUSATE SODIUM 100 MG CAP PO SCH (08:29)
[2020-10-09] MEDS: HYDROcodone/ACETAMINOPHEN 5-325 MG TAB PO PRN (08:30)
[2020-10-09 12:23] VITALS: BP 151/77
== END 2020-10-09 12:30 | disposition home or self-care (01) | DRG 774 ==
LOC: TRG 00:26 → LD 01:26 → OB 03:55
PROVIDERS: ADMIT Obstetrics & Gynecology; ATTEND Obstetrics & Gynecology
PROC: 10E0XZZ Delivery of Products of Conception, External Approach (ICD-10-PCS; principal; 2020-10-07)
PROC: 0HQ9XZZ Repair Perineum Skin, External Approach (ICD-10-PCS; 2020-10-07)
DX: O62.3 Precipitate labor (principal); O10.92 Unspecified pre-existing hypertension complicating childbirth; O99.824 Streptococcus B carrier state complicating childbirth; O99.214 Obesity complicating childbirth; E66.9 Obesity, unspecified; Z37.0 Single live birth; Z3A.38 38 weeks gestation of pregnancy; O70.0 First degree perineal laceration during delivery; O99.13 Other diseases of the blood and blood-forming organs and certain disorders involving the immune mechanism complicating the puerperium; D72.829 Elevated white blood cell count, unspecified
CPT/HCPCS: 36415; 80053; 80307; 81001; 83615; 84550; 85014; 85018; 85027; 86592; 86706; 86762; 86803; 86850; 86900; 86901; 87086; 87806; 88307; G0378; J0696; U0003